=== PATIENT | female | born 1985 | race Caucasian/White ===

== ENCOUNTER 2021-04-07 23:09 | Observation (INO) | payer OTHER, SELFPAY ==
[2021-04-07 23:17] VITALS: BP 112/70; PULSE 106; RESP 28; TEMP 37.3; O2SAT 98
--- NOTE | 2021-04-07 23:28 | DI.CT.S_ITS ---
PROCEDURE: CT ABDOMEN PELVIS W CON INDICATIONS: lower right sided pain TECHNIQUE: After the administration of intravenous contrast, axial sections acquired from the lung bases to the pubic symphysis. Coronal and sagittal reformats were performed. For radiation dose reduction, the following was used: automated exposure control, adjustment of mA and/or kV according to patient size. COMPARISON: None. FINDINGS: Image quality: Excellent. Lung bases: Unremarkable. Heart: No significant findings. ABDOMEN: Liver: Unremarkable. Gallbladder: Surgically absent Biliary ducts: Unremarkable. Pancreas: Unremarkable. Spleen: Unremarkable. Adrenal Glands: Unremarkable. Kidneys and Ureters: Unremarkable. Stomach and Bowel: There is a loop of small bowel which is dilated, possibly representing proximal ileum. Maximum diameter of the loop is approximately 2.9 cm. It has the appearance of a focal small bowel obstruction. No free air or free fluid. Peritoneum: No abnormal intraperitoneal fluid. No free air. Ventral Wall: No hernias. Abdominal Nodes: No retroperitoneal or mesenteric adenopathy by size criteria. Vessels: Aorta and inferior vena cava are normal in size. PELVIS: Pelvic Organs: Uterus is surgically absent. 2.2 cm partially collapsed left ovarian cyst. Otherwise unremarkable. Bladder: Unremarkable. Pelvic Nodes: No enlarged lymph nodes. Miscellaneous: No hernias are seen. Bones: Unremarkable. IMPRESSION: 1. Remote cholecystectomy and hysterectomy. 2. Findings are consistent with partial or early small bowel obstruction. Comment: Final report is concordant with preliminary interpretation provided by [facility]. Dictated by: Colten Zhang M.D. on 04/08/2021 at 8:23 Approved by: Colten Zhang M.D. on 04/08/2021 at 8:31
--- NOTE | 2021-04-07 23:29 | ED_ITS ---
HPI - Abdominal Pain General Chief Complaint: Abdominal Pain Stated Complaint: Extreme R Quadrant Pain Source: patient Mode of arrival: Ambulatory History of Present Illness HPI narrative: Patient brought in by EMS from home for right side abdominal pain with nausea and vomiting. Similar episode with gastric perforation but denies any epigastric pain. History of appendectomy cholecystectomy and hysterectomy. Patient states usually goes to [facility]. No recent illness. Patient states needs Benadryl when given narcotic pain medication. Related Data Home Medications Medication Instructions Recorded Confirmed acetaminophen 500 mg tablet 1,000 mg PO Q6H PRN 04/08/21 04/08/21 (Acetaminophen Extra Strength) albuterol sulfate 90 mcg/actuation 2 puff INHALATION Q4HR PRN 04/08/21 04/08/21 aerosol inhaler diphenhydramine HCl 25 mg tablet 25 - 50 mg PO PRN PRN 04/08/21 04/08/21 (Allergy (diphenhydramine)) epinephrine 0.3 mg/0.3 mL 0.3 mg IM PRN PRN 04/08/21 04/08/21 injection, auto-injector loratadine 10 mg tablet (Claritin) 10 mg PO DAILY 04/08/21 04/08/21 Previous Rx's Medication Instructions Recorded ciprofloxacin HCl 500 mg tablet 500 mg PO BID #5 tab 04/09/21 (Cipro) prochlorperazine maleate 10 mg 10 mg PO Q8H PRN #10 tab 04/09/21 tablet (Compazine) Allergies Allergy/AdvReac Type Severity Reaction Status Date / Time amoxicillin [AMOXICILLIN] Allergy Unknown Verified 04/07/21 23:26 aspirin [ASPIRIN] Allergy Unknown Verified 04/07/21 23:26 butorphanol [BUTORPHANOL] Allergy Unknown Verified 04/07/21 23:26 clavulanic acid Allergy Unknown Verified 04/07/21 23:26 [CLAVULANIC ACID] fentanyl [FENTANYL] Allergy Unknown Verified 04/07/21 23:26 fluconazole [FLUCONAZOLE] Allergy Unknown Verified 04/07/21 23:26 hydrocodone [HYDROCODONE] Allergy Unknown Verified 04/07/21 23:26 hydromorphone [HYDROMORPHONE] Allergy Unknown Verified 04/07/21 23:26 methylprednisolone Allergy Unknown Verified 04/07/21 23:26 [METHYLPREDNISOLONE] morphine [MORPHINE] Allergy Unknown Verified 04/07/21 23:26 nitrofurantoin Allergy Unknown Verified 04/07/21 23:26 [NITROFURANTOIN] tamsulosin [TAMSULOSIN] Allergy Unknown Verified 04/07/21 23:26 tramadol [TRAMADOL] Allergy Unknown Verified 04/07/21 23:26 Review of Systems Review of Systems Narrative: GENERAL: Denies chills, fatigue, malaise, fever, sweats. HEENT: Denies sinus pain, ear pain, sore throat RESPIRATORY: Denies dyspnea, cough CARDIOVASCULAR: Denies chest pain, palpitations GASTROINTESTINAL: Complaint nausea, vomiting, abdominal pain : Denies dysuria, frequency, hematuria MUSCULOSKELETAL: denies muscle or bony pain SKIN: Denies rash, skin lesions NEUROLOGIC: Denies weakness, numbness Patient History Medical History (Updated 04/09/21 @ 12:39 by Vicente Spence MD) History of peptic ulcer disease Polycystic kidney disease Surgical History (Updated 04/08/21 @ 08:26 by Vicente Spence MD) Status post appendectomy Status post cholecystectomy Social History household members: spouse and children Smoking Status: Never smoker alcohol intake: never Smoking Status: Never smoker alcohol intake frequency: other Substance Use Type: marijuana Exam Narrative Exam Narrative: GENERAL: in no distress, not toxic not dyspneic HEAD: Normocephalic. EYES: Pupils equal round No scleral icterus. No injection no discharge ENT: Mucous membranes moist. NECK: Trachea midline. CARDIOVASCULAR: Regular rate and rhythm without murmurs RESPIRATORY: Clear to auscultation. Breath sounds equal bilaterally. No wheezes, rales, or rhonchi. GASTROINTESTINAL: Abdomen soft, tender to touch right upper and lower quadrant of abdomen. Bowel sounds present. No peritoneal signs EXTREMITIES: No gross deformities. BACK: No flank tenderness. NEURO: AOx4. SKIN: Warm and dry PSYCH: Not anxious, is cooperative Initial Vital Signs Initial Vital Signs: Vital Signs Temperature 99.1 F 04/07/21 23:17 Pulse Rate 106 H 04/07/21 23:17 Respiratory Rate 28 H 04/07/21 23:17 Blood Pressure 112/70 04/07/21 23:17 Pulse Oximetry 98 04/07/21 23:17 Course Course Course Narrative: No new issues during course of stay Orders Ordered: Discontinued Medications Ciprofloxacin (Ciprofloxacin 250 Mg Tablet) 500 mg PO NOW ONE Stop: 04/08/21 16:16 Last Admin: 04/08/21 16:38 Dose: 500 mg Documented by: DELTA Ciprofloxacin (Ciprofloxacin 250 Mg Tablet) 500 mg PO 0700,2100 RICHA Last Admin: 04/09/21 08:12 Dose: 500 mg Documented by: PADMA Diphenhydramine HCl (Diphenhydramine 50 Mg/Ml Vial) 25 mg IV NOW ONE Stop: 04/07/21 23:28 Last Admin: 04/07/21 23:35 Dose: 25 mg Documented by: FAZAL Diphenhydramine HCl (Diphenhydramine 50 Mg/Ml Vial) 25 mg IV QID PRN PRN Reason: Allergic Reaction Last Admin: 04/08/21 03:09 Dose: 25 mg Documented by: SAMMY Diphenhydramine HCl (Diphenhydramine 25 Mg Tablet) 25 mg PO Q6HR PRN PRN Reason: Itching Last Admin: 04/09/21 09:49 Dose: 25 mg Documented by: Admin: 04/09/21 02:28 Dose: 25 mg Documented by: KEYSHA Sodium Chloride (Normal Saline 0.9%) 1,000 mls @ 1,000 mls/hr IV BOLUS ONE Stop: 04/08/21 00:26 Last Infusion: 04/08/21 01:24 Dose: 0 mls/hr Documented by: Admin: 04/07/21 23:35 Dose: 1,000 mls/hr Documented by: FAZAL Lactated Ringer's (Lactated Ringers) 1,000 mls @ 150 mls/hr IV CONT RICHA Last Admin: 04/09/21 09:54 Dose: 150 mls/hr Documented by: Infusion: 04/08/21 16:39 Dose: 0 mls/hr Documented by: Admin: 04/08/21 09:30 Dose: 150 mls/hr Documented by: Infusion: 04/08/21 08:01 Dose: 150 mls/hr Documented by: Admin: 04/08/21 01:20 Dose: 150 mls/hr Documented by: FAZAL Lorazepam (Lorazepam 2 Mg/Ml Inj) 1 mg IV NOW ONE Stop: 04/08/21 08:17 Last Admin: 04/08/21 08:27 Dose: 1 mg Documented by: ADIEL Lorazepam (Lorazepam 2 Mg/Ml Inj) 1 mg IV Q6HR PRN PRN Reason: Anxiety Morphine Sulfate (Morphine 4 Mg/Ml Inj) 4 mg IV NOW ONE Stop: 04/07/21 23:28 Last Admin: 04/07/21 23:36 Dose: 4 mg Documented by: FAZAL Morphine Sulfate (Morphine 2 Mg/Ml Inj) 4 mg IV Q4HR PRN PRN Reason: Pain, Mild (1-3) Last Admin: 04/09/21 10:30 Dose: 4 mg Documented by: Admin: 04/08/21 14:50 Dose: 2 mg Documented by: Admin: 04/08/21 08:39 Dose: 4 mg Documented by: Admin: 04/08/21 05:37 Dose: 4 mg Documented by: Admin: 04/08/21 01:20 Dose: 4 mg Documented by: FAZAL Ondansetron HCl (Ondansetron 4 Mg/2 Ml Inj) 4 mg IV NOW ONE Stop: 04/07/21 23:28 Last Admin: 04/07/21 23:36 Dose: 4 mg Documented by: FAZAL Ondansetron HCl (Ondansetron 4 Mg/2 Ml Inj) 4 mg IV Q4HR PRN PRN Reason: Nausea And Vomiting Last Admin: 04/08/21 14:02 Dose: 4 mg Documented by: Admin: 04/08/21 05:45 Dose: 4 mg Documented by: MERCED Oxycodone HCl (Oxycodone Ir 10 Mg Tablet) 10 mg PO Q4HR PRN PRN Reason: Pain, Severe (7-10) Last Admin: 04/09/21 06:40 Dose: 10 mg Documented by: Admin: 04/09/21 02:28 Dose: 10 mg Documented by: KEYSHA Pantoprazole Sodium (Pantoprazole Dr 20 Mg Tablet) 20 mg PO NOW ONE Stop: 04/08/21 15:27 Last Admin: 04/08/21 15:48 Dose: 20 mg Documented by: DELTA Prochlorperazine (Prochlorperazine 10 Mg/2 Ml Vial) 10 mg IV NOW ONE Stop: 04/08/21 08:17 Last Admin: 04/08/21 08:28 Dose: 10 mg Documented by: ADIEL Prochlorperazine (Prochlorperazine 10 Mg/2 Ml Vial) 10 mg IV Q6HR PRN PRN Reason: Nausea Last Admin: 04/09/21 09:51 Dose: 10 mg Documented by: PADMA Reevaluation(s) Reevaluation #1: Patient understands indication for admission and she agrees. Time: 01:04 Consultations Consultation #1: Spoke with general surgery Dr. Spence, will admit to his service. No NG tube indicated this time. Start lactated Ringer's 150 mL/hour. Vital Signs Vital signs: Vital Signs - 8 hr 04/07/21 23:17 04/08/21 00:34 Temperature 99.1 F Pulse Rate 106 H 77 Respiratory Rate 28 H 17 Blood Pressure 112/70 Pulse Oximetry 98 99 MDM - Abdominal Pain Differential Diagnosis Differential diagnosis: Likely abdominal pain and small bowel obstruction Lab Data Result diagrams: 04/07/21 23:31 04/07/21 23:31 Labs: Lab Results 04/07/21 04/07/21 Range/Units 23:31 23:31 WBC 9.2 (4.5-11.0) X10^3/uL RBC 4.70 (4.0-5.2) X10^6/uL Hgb 14.1 (12.0-16.0) g/dL Hct 41.9 (36-46) % MCV 89.0 (80-100) fL MCH 30.0 (26-34) PG MCHC 33.7 (30-36) % RDW 12.9 (11.6-14.8) % Plt Count 265 (150-400) X10^3/uL Neut % (Auto) 64.5 (50-75) % Lymph % (Auto) 25.0 (25-40) % [place] % (Auto) 6.3 (3-14) % Eos % (Auto) 3.1 (2-4) % Baso % (Auto) 1.1 (0-2) % Neut # (Auto) 5900 (6281-2055) /uL Lymph # (Auto) 2300 (1812-7502) /uL [place] # (Auto) 600 (0-900) /uL Eos # (Auto) 300 (0-450) /uL Baso # (Auto) 100 (0-100) /uL Sodium 139 (137-145) mmol/L Potassium 3.9 (3.4-5.1) mmol/L Chloride 106 (98-107) mmol/L Carbon Dioxide 24 (22-32) mmol/L BUN 15 (7-17) mg/dL Creatinine 0.70 (0.52-1.04) mg/dL Estimated GFR > 60.0 (>60) mL/min BUN/Creatinine Ratio 21.4 (6-22) Glucose 104 H (70-100) mg/dL Calcium 9.7 (8.4-10.2) mg/dL Total Bilirubin 0.5 (0.2-1.3) mg/dL AST 24 (14-36) IU/L ALT 16 (<35) IU/L Alkaline Phosphatase 41 (38-126) U/L Total Protein 8.1 (6.3-8.2) g/dL Albumin 4.7 (3.5-5.0) g/dL Globulin 3.4 (1.7-4.1) g/dL Albumin/Globulin Ratio 1.4 (1.0-2.8) Lipase 242 (23-300) U/L Imaging Data CT scan - abdomen/pelvis: Radiologist's Impression: Read by overnight radiologist mild partial small-bowel obstruction involving only few fluids of distal bowel and pelvis. MDM Narrative Medical decision making narrative: Appropriate for admit for pain control and bowel obstruction observation Discharge Plan Departure Patient Disposition: Admitted as Observation Clinical Impression: Partial bowel obstruction Qualifiers: Intestinal obstruction type: unspecified Qualified Code(s): K56.600 - Partial intestinal obstruction, unspecified as to cause Admit Date/Time: 04/08/21 01:10 Admit Provider: Vicente Spence
[2021-04-07] MEDS: diphenhydrAMINE 50 MG/ML VIAL 25 MG IV (23:35)
[2021-04-07] MEDS: SODIUM CHLORIDE 0.9% 1,000 ML 1000 ML IV (23:35)
[2021-04-07] MEDS: MORPHINE 4 MG/ML INJ IV (23:36)
[2021-04-07] MEDS: ONDANSETRON 4 MG/2 ML INJ IV (23:36)
[2021-04-07 23:42] LABS: Add Manual Diff / Slide Review NO; Basophils Absolute Auto 100 /uL (0-100); Basophils Percent Auto 1.1 % (0-2); Eosinophils Absolute Auto 300 /uL (0-450); Eosinophils Percent Auto 3.1 % (2-4); Hematocrit 41.9 % (36-46); Hemoglobin 14.1 g/dL (12.0-16.0); Lymphocytes Absolute Auto 2300 /uL (1100-4500); Mean Corpuscular HGB Conc 33.7 % (30-36); Monocytes Absolute Auto 600 /uL (0-900); Monocytes Percent Auto 6.3 % (3-14); Neutrophils Absolute Auto 5900 /uL (1500-7000); Neutrophils Percent Auto 64.5 % (50-75); Platelet Count 265 X10^3/uL (150-400); Red Cell Distribution Width 12.9 % (11.6-14.8); White Blood Cell Count 9.2 X10^3/uL (4.5-11.0)
[2021-04-07 23:52] LABS: Alanine Aminotransferase 16 IU/L (<35); Albumin 4.7 g/dL (3.5-5.0); Albumin Globulin Ratio 1.4 (1.0-2.8); Alkaline Phosphatase 41 U/L (38-126); Aspartate Aminotransferase 24 IU/L (14-36); BUN Creatinine Ratio 21.4 (6-22); Bilirubin Total 0.5 mg/dL (0.2-1.3); Blood Urea Nitrogen 15 mg/dL (7-17); Calcium 9.7 mg/dL (8.4-10.2); Carbon Dioxide 24 mmol/L (22-32); Chloride 106 mmol/L (98-107); Estimated Glomerular Filt Rate > 60.0 mL/min (>60); Globulin 3.4 g/dL (1.7-4.1); Glucose 104 mg/dL (70-100); HEMOLYSIS < 15 (0-50); Lipase 242 U/L (23-300); Potassium 3.9 mmol/L (3.4-5.1); Sodium 139 mmol/L (137-145); Total Protein 8.1 g/dL (6.3-8.2)
[2021-04-08] VITALS (9 sets, daily range): BP systolic 96–125; BP diastolic 53–88; PULSE 68–100; RESP 16–18; TEMP 36.1–37.1; O2SAT 96–100; BMI 26.2
--- NOTE | 2021-04-08 | DI.RAD.S_ITS ---
PROCEDURE: XR GASTROGRAFIN CHALLENGE COMPARISON: None. INDICATIONS: r/o obstruction. therapeutic FINDINGS: There is diffuse oral contrast material seen within the small bowel and colon. There is small amount of contrast material seen in the proximal rectal vault. Residual IV contrast material seen within the bladder. No specific transition point identified. Contrast material is also retained in the stomach. Surgical clips at the right upper quadrant. IMPRESSION: No specific transition point. Contrast material reaches the proximal rectal vault. Of note, residual oral contrast material retained in the stomach. Dictated by: Panda Rosas M.D. on 04/08/2021 at 13:37 Approved by: Panda Rosas M.D. on 04/08/2021 at 13:38
[2021-04-08] MEDS: MORPHINE 2 MG/ML INJ 4 MG IV ×4 (01:20→14:50)
[2021-04-08] MEDS: LACTATED RINGERS 1,000 ML 150 ML IV ×2 (01:20→09:30)
[2021-04-08 02:28] LABS: COVID19 - ADMIT (NP swab/PCR) Negative (Negative)
--- NOTE | 2021-04-08 03:06 | PC.ADMIT ---
[address] Admission Note: Patient arrived at 0145 from the ED via bed. Patient was A/O with pain rated 9-10/10. Patient was shivering but stated it was from the pain and not from being cold. Patient did have medications in her purse that were placed in the nurse sever. Patient's IV was painful and above the site was breaking out in hives. The site was removed and a new site was placed. Patient tolerated both well. Patient was oriented to the room and call light, and the call light was left within reach. The patient,Sheyla Tapia,36 y/o, was given written information regarding hospital policies, unit procedures and contact persons. Patient's smoking status: Never smoker. Vital Signs - 8 hr 04/07/21 23:17 04/08/21 00:33 04/08/21 00:34 Temperature 99.1 F Pulse Rate 106 H 76 77 Respiratory Rate 28 H 17 Blood Pressure 112/70 122/88 Pulse Oximetry 98 99 99 04/08/21 01:00 04/08/21 01:50 Temperature 97.6 F Pulse Rate 88 100 H Respiratory Rate 18 Blood Pressure 125/76 117/63 Pulse Oximetry 98 100
[2021-04-08] MEDS: diphenhydrAMINE 50 MG/ML VIAL 25 MG IV (03:09)
[2021-04-08] MEDS: ONDANSETRON 4 MG/2 ML INJ IV ×2 (05:45→14:02)
--- NOTE | 2021-04-08 08:19 | PM.HP.1 ---
History of Present Illness History of Present Illness Chief complaint: Extreme R Quadrant Pain Narrative: The patient is a woman has been having increasing diarrhea the last 2 or so weeks. It is become more severe the last few days. Yesterday she developed abdominal pain with cramping that became so severe that she came into the emergency room. She does have chronic abdominal pain that she feels is related to her polycystic kidney disease. Pain appears to be mainly in the right lower abdomen. The patient has had a hysterectomy and right oophorectomy for cervical cancer. She has had an appendectomy. She has had a cholecystectomy and she had an operation for perforated ulcer. She does have chronic pain as mentioned in usually uses the CBD gummies to relieve it so she can sleep at night. She did have multiple episodes of emesis yesterday as well. Patient History Medical History (Updated 04/08/21 @ 08:33 by Vicente Spence MD) History of peptic ulcer disease Polycystic kidney disease Surgical History (Updated 04/08/21 @ 08:26 by Vicente Spence MD) Status post appendectomy Status post cholecystectomy Family & Social History Social History: household members spouse,children Prior Living Arrangements Apartment/Condo Safety & Behavioral: Feels Safe in Current Yes Environment Been Physically Hurt or No Threatened By a Person Suicidal Ideation Description None Suicide Plan Description No Plan Tobacco & Substance use: Smoking Status Never smoker alcohol intake never alcohol intake frequency other Substance Use Type marijuana Meds Home Medications and Allergies Home Medications Medication Instructions Recorded Confirmed Type acetaminophen 500 mg tablet 1,000 mg PO Q6H PRN 04/08/21 04/08/21 History (Acetaminophen Extra Strength) albuterol sulfate 90 mcg/actuation 2 puff INHALATION Q4HR PRN 04/08/21 04/08/21 History aerosol inhaler diphenhydramine HCl 25 mg tablet 25 - 50 mg PO PRN PRN 04/08/21 04/08/21 History (Allergy (diphenhydramine)) epinephrine 0.3 mg/0.3 mL 0.3 mg IM PRN PRN 04/08/21 04/08/21 History injection, auto-injector loratadine 10 mg tablet (Claritin) 10 mg PO DAILY 04/08/21 04/08/21 History Allergies Allergy/AdvReac Type Severity Reaction Status Date / Time amoxicillin [AMOXICILLIN] Allergy Unknown Verified 04/07/21 23:26 aspirin [ASPIRIN] Allergy Unknown Verified 04/07/21 23:26 butorphanol [BUTORPHANOL] Allergy Unknown Verified 04/07/21 23:26 clavulanic acid Allergy Unknown Verified 04/07/21 23:26 [CLAVULANIC ACID] fentanyl [FENTANYL] Allergy Unknown Verified 04/07/21 23:26 fluconazole [FLUCONAZOLE] Allergy Unknown Verified 04/07/21 23:26 hydrocodone [HYDROCODONE] Allergy Unknown Verified 04/07/21 23:26 hydromorphone [HYDROMORPHONE] Allergy Unknown Verified 04/07/21 23:26 methylprednisolone Allergy Unknown Verified 04/07/21 23:26 [METHYLPREDNISOLONE] morphine [MORPHINE] Allergy Unknown Verified 04/07/21 23:26 nitrofurantoin Allergy Unknown Verified 04/07/21 23:26 [NITROFURANTOIN] tamsulosin [TAMSULOSIN] Allergy Unknown Verified 04/07/21 23:26 tramadol [TRAMADOL] Allergy Unknown Verified 04/07/21 23:26 Review of Systems Review of Systems Narrative: No prior heart problems. No murmurs. No cough or cold at this time. No seizures. Exam Vital Signs (past 8 hours): - 04/08/21 00:33 04/08/21 00:34 04/08/21 01:00 Temperature Pulse Rate 76 77 88 Respiratory Rate 17 Blood Pressure 122/88 125/76 Pulse Oximetry 99 99 98 04/08/21 01:50 04/08/21 06:00 Temperature 97.6 F 97.0 F L Pulse Rate 100 H 83 Respiratory Rate 18 16 Blood Pressure 117/63 101/68 Pulse Oximetry 100 99 Oxygen Delivery Method Room Air Oxygen Flow Rate 0 Narrative Exam Narrative: Patient rolling on bed in pain. Grabbing at her right side. Eyes are nonicteric. No bruit in the neck. Lungs are clear to auscultation without rales or rhonchi. Heart regular rate and rhythm without murmur gallop. Abdomen is flat soft. She has tenderness in the right lower quadrant with voluntary guarding. She has multiple scars on her abdomen from her various operations. I do not appreciate any hernias. She is alert and oriented. Appears anxious and in pain. Objective Imaging CT scan - abdomen: My impression: Perhaps some mild mid abdominal distension of the small bowel. Most of the small bowel is not dilated. I do not appreciate any ventral hernias. Kidneys appear fairly normal on the CT scan. The prior ultrasound earlier this year showed some small cysts. Not sure if this is typical of polycystic kidney disease. Labs Result Diagrams: 04/07/21 23:31 04/07/21 23:31 Labs: Laboratory Results - last 24 hr 04/07/21 04/07/21 04/08/21 23:31 23:31 01:30 WBC 9.2 RBC 4.70 Hgb 14.1 Hct 41.9 MCV 89.0 MCH 30.0 MCHC 33.7 RDW 12.9 Plt Count 265 Neut % (Auto) 64.5 Lymph % (Auto) 25.0 [place] % (Auto) 6.3 Eos % (Auto) 3.1 Baso % (Auto) 1.1 Neut # (Auto) 5900 Lymph # (Auto) 2300 [place] # (Auto) 600 Eos # (Auto) 300 Baso # (Auto) 100 Sodium 139 Potassium 3.9 Chloride 106 Carbon Dioxide 24 BUN 15 Creatinine 0.70 Estimated GFR > 60.0 BUN/Creatinine Ratio 21.4 Glucose 104 H Calcium 9.7 Total Bilirubin 0.5 AST 24 ALT 16 Alkaline Phosphatase 41 Total Protein 8.1 Albumin 4.7 Globulin 3.4 Albumin/Globulin Ratio 1.4 Lipase 242 SARS-CoV-2 (PCR) Negative Assessment & Plan Assessment and plan (1) Partial bowel obstruction: Qualifiers: Intestinal obstruction type: unspecified Qualified Code(s): K56.600 - Partial intestinal obstruction, unspecified as to cause Status: Acute (2) Diarrhea: Qualifiers: Diarrhea type: unspecified type Qualified Code(s): R19.7 - Diarrhea, unspecified Status: Acute (3) Abdominal pain: Qualifiers: Abdominal location: right lower quadrant Qualified Code(s): R10.31 - Right lower quadrant pain Status: Acute Assessment & Plan narrative: Cause of this patient's symptoms not entirely clear. This may be related to infectious diarrhea or some with a GI bug. She could have a partial obstruction. Her pain and motion suggest a diagnosis other than peritoneal irritation as most patients with peritonitis lay rather still. Plan a Gastrografin challenge. IV resuscitation. Meds for anxiety and pain control.
[2021-04-08] MEDS: LORazepam 2 MG/ML INJ 1 MG IV (08:27)
[2021-04-08] MEDS: PROCHLORPERAZINE 10 MG/2 ML VIAL IV (08:28)
--- NOTE | 2021-04-08 14:20 | CM.IDA ---
Initial DCP Assessment Note Pt is a 36 yo female, resident of [place], arrives w/extreme abd pain and increasing diarrhea. According to Dr Spence, cause of patient's symptoms unknown at this time, conservative management and gastrografin challenge today PCP: Ceci Cherry Payer: Hillary Reviewed chart, pt discussed in multidisciplinary rounds this morning. Patient expected to return home w/family upon DC, medical POC still unfolding. No needs expected from DC planning team today, attempted to meet with patient and she was asleep, RN recommended to allow patient to rest at this time. [employer] team will follow closely for any DC needs or concerns that might arise. VALERY Renteria
[2021-04-08] MEDS: PANTOPRAZOLE DR 20 MG TABLET PO (15:48)
[2021-04-08 15:56] LABS: Campylobacter Not Detected (Not Detect); Clostridium difficile toxin AB Not Detected (Not Detect); Plesiomonsa shigelloides Not Detected (Not Detect); Salmonella Not Detected (Not Detect); Vibrio Not Detected (Not Detect); Vibrio cholerae Not Detected (Not Detect); Yersinia enterocolitica Not Detected (Not Detect)
[2021-04-08 15:57] LABS: Adenovirus F 40/41 Not Detected (Not Detect); Astrovirus Not Detected (Not Detect); Cryptosporidium Not Detected (Not Detect); Cyclospora cayetanensis Not Detected (Not Detect); Entamoeba histolytica Not Detected (Not Detect); Enteroaggregative E.coli Not Detected (Not Detect); Enterotoxigenic E.coli It/st Not Detected (Not Detect); Giardia lamblia Not Detected (Not Detect); Norovirus GI/GII Not Detected (Not Detect); Rotavirus A Not Detected (Not Detect); Sapovirus Not Detected (Not Detect); Shiga-like toxin-prod E.coli Not Detected (Not Detect); Shigella/Enteroinvasive E.coli Not Detected (Not Detect)
[2021-04-08 16:02] LABS: Enteropathogenic E.coli Detected (Not Detect)
[2021-04-08] MEDS: CIPROFLOXACIN 250 MG TABLET 500 MG PO (16:38)
[2021-04-09] VITALS: BP 96/58; PULSE 81; RESP 16; TEMP 36.6; O2SAT 97
[2021-04-09] MEDS: OXYCODONE IR 10 MG TABLET PO ×2 (02:28→06:40)
[2021-04-09] MEDS: diphenhydrAMINE 25 MG TABLET PO ×2 (02:28→09:49)
[2021-04-09 04:00] VITALS: BP 107/71; PULSE 98; RESP 16; TEMP 36.9; O2SAT 99
[2021-04-09] MEDS: CIPROFLOXACIN 250 MG TABLET 500 MG PO (08:12)
[2021-04-09 08:20] VITALS: BP 100/65; PULSE 79; RESP 18; TEMP 36.7; O2SAT 99
[2021-04-09 09:51] VITALS: BP 100/65; PULSE 79
[2021-04-09] MEDS: PROCHLORPERAZINE 10 MG/2 ML VIAL IV (09:51)
[2021-04-09] MEDS: LACTATED RINGERS 1,000 ML 150 ML IV (09:54)
[2021-04-09] MEDS: MORPHINE 2 MG/ML INJ 4 MG IV (10:30)
--- NOTE | 2021-04-09 14:13 | PC.NURSE ---
Pt receieved resting in bed this a.m. Pt complains of nausea and abdominal pain 9/10 this a.m with tenderness to RLQ. + BS auscultated x4. Pt LS CTA, ambulating without difficulty to BR. Pt requesting IV to be replaced for pain medication stronger than 10 mg oxycodone, stating it had very little effect. Able to establish IV access and administer compazine and morphine per request. Pt given benadryl prior to morphine per request reports getting flushed/hives without benadryl. No reaction noted, pt sleeping and tolerating clear liquid diet without n/v. MD at bedside shortly after noon, clearing patient for discharge home. Pt verbalized acknowledgement and in agreement with plan, states understanding of medications, and follow up instructions. RN escorted patient to private vehicle with , with all of her home medications, epi pen and belongings.
== END 2021-04-09 14:00 | disposition home or self-care (01) ==
LOC: ED 04-08 01:05 → AC 04-08 01:11
PROVIDERS: Admitting Provider Specialist; Emergency Provider Emergency Medicine; Family Provider Nurse Practitioner Family; PCP Nurse Practitioner Family; Referring Provider Emergency Medicine; Visit Provider Specialist
DX: K56.600 Partial intestinal obstruction, unspecified as to cause (principal); Q61.3 Polycystic kidney, unspecified; Z20.822 Contact with and (suspected) exposure to COVID-19
CPT/HCPCS: 36415; 74018; 74177; 80053; 81003; 82962; 83690; 85025; 87507; 87635; 96361; 96374; 96375; 96376; 99219; 99284; C9803; G0378; J0780; J1200; J2060; J2270; J2405; Q9967

== ENCOUNTER → 2021-05-06 11:12 | Outpatient (CLI) | payer OTHER, SELFPAY ==
[2021-04-08 02:06] VITALS: BMI 26.2
[2021-05-06 11:18] LABS: RBC Urine None Seen (0-5/HPF)
[2021-05-06 12:14] LABS: Add Manual Diff / Slide Review NO; Basophils Absolute Auto 100 /uL (0-100); Basophils Percent Auto 1.1 % (0-2); Eosinophils Absolute Auto 300 /uL (0-450); Eosinophils Percent Auto 4.5 % (2-4); Hematocrit 40.9 % (36-46); Hemoglobin 13.7 g/dL (12.0-16.0); Lymphocytes Absolute Auto 2200 /uL (1100-4500); Lymphocytes Percent Auto 31.8 % (25-40); Mean Corpuscular HGB Conc 33.4 % (30-36); Mean Corpuscular Hemoglobin 30.2 PG (26-34); Mean Corpuscular Volume 90.5 fL (80-100); Monocytes Absolute Auto 400 /uL (0-900); Monocytes Percent Auto 5.5 % (3-14); Neutrophils Absolute Auto 3900 /uL (1500-7000); Neutrophils Percent Auto 57.1 % (50-75); Platelet Count 217 X10^3/uL (150-400); Red Blood Cell Count 4.52 X10^6/uL (4.0-5.2); Red Cell Distribution Width 12.7 % (11.6-14.8); White Blood Cell Count 6.8 X10^3/uL (4.5-11.0)
[2021-05-06 12:44] LABS: Alanine Aminotransferase 14 IU/L (<35); Albumin 4.4 g/dL (3.5-5.0); Albumin Globulin Ratio 1.4 (1.0-2.8); Alkaline Phosphatase 35 U/L (38-126); Aspartate Aminotransferase 20 IU/L (14-36); BUN Creatinine Ratio 21.8 (6-22); Bilirubin Total 0.5 mg/dL (0.2-1.3); Blood Urea Nitrogen 12 mg/dL (7-17); Calcium 9.4 mg/dL (8.4-10.2); Carbon Dioxide 24 mmol/L (22-32); Chloride 109 mmol/L (98-107); Estimated Glomerular Filt Rate > 60.0 mL/min (>60); Globulin 3.1 g/dL (1.7-4.1); Glucose 92 mg/dL (70-100); HEMOLYSIS < 15 (0-50); Potassium 3.8 mmol/L (3.4-5.1); Sodium 140 mmol/L (137-145); Total Protein 7.5 g/dL (6.3-8.2)
[2021-05-06 12:54] LABS: Appearance Urine UA CLEAR; Bilirubin Urine UA NEGATIVE (NEGATIVE); Color Urine UA YELLOW; Glucose Urine UA NEGATIVE (Negative); Ketones Urine UA NEGATIVE (NEGATIVE); Leukocyte Esterase Urine UA NEGATIVE (NEGATIVE); Nitrite Urine UA NEGATIVE (Negative); Occult Blood Urine UA NEGATIVE (Negative); Protein Urine UA NEGATIVE (Negative); Specific Gravity Urine UA 1.015 (1.000-1.035); Urobilinogen Urine UA 0.2 E.U./dL (0.2)
[2021-05-06 13:15] LABS: Bacteria Urine Few (2-10); Culture Indicated Urine Cult Not Indicated; Mucus Urine 2+ (Negative); Squamous Epithelial Cell Urine 5-10 /HPF (0-5/HPF); WBC Urine 0-1/HPF (0-5/HPF)
== END ==
PROVIDERS: Family Provider Nurse Practitioner Family; Referring Provider Specialist; Visit Provider Specialist
DX: R10.9 Unspecified abdominal pain (principal); R11.2 Nausea with vomiting, unspecified; R31.9 Hematuria, unspecified
CPT/HCPCS: 36415; 80053; 81001; 85025

== ENCOUNTER → 2021-05-24 10:53 | Outpatient (CLI) | payer OTHER, SELFPAY ==
[2021-04-08 02:06] VITALS: BMI 26.2
[2021-05-24 13:50] LABS: COVID19 -Nasal RAPID Negative (Negative)
== END ==
PROVIDERS: Family Provider Nurse Practitioner Family; Visit Provider Specialist
DX: Z01.812 Encounter for preprocedural laboratory examination (principal); Z20.822 Contact with and (suspected) exposure to COVID-19
CPT/HCPCS: 87635; C9803

== ENCOUNTER 2021-05-26 11:10 | Day surgery (SDC) | payer OTHER, SELFPAY ==
[2021-04-08 02:06] VITALS: BMI 26.2
[2021-05-26] VITALS (10 sets, daily range): BP systolic 92–107; BP diastolic 48–78; PULSE 71–98; RESP 12–19; TEMP 36.1–36.6; O2SAT 98–100; BMI 25.2
--- NOTE | 2021-05-26 | PATH_ITS ---
[facility] Accession Number: [id number] . 01 Material submitted: . PART A: stomach - GASTRIC ANTRUM PART B: esophagus, E-G Junction - GE JUNCTION PART C: ileum - RANDOM BIOPSY; TERMINAL ILEUM . 01 Clinical history: . A: R/O H PYLORI . 02 Diagnosis: A. Stomach, Antrum, Biopsy: Antral mucosa with mild chronic gastritis. Negative for Helicobacter by immunohistochemistry. Negative for intestinal metaplasia. Negative for dysplasia and malignancy. . B. Gastroesophageal Junction, Biopsy: Squamous mucosa with reflux-related changes. Intraepithelial eosinophils are not increased. A PAS stain is negative for fungal organisms. Negative for dysplasia and malignancy. . C. Terminal Ileum, Biopsy: Small bowel mucosa with no diagnostic abnormality. Negative for active inflammation, dysplasia, and malignancy. [facility] 05/31/2021 1432 Local . 02 Electronically signed: . Emeli Macedo MD, Pathologist NPI- [id number] . 01 Gross description: . Part A: GASTRIC ANTRUM: Received in formalin are 3 fragment(s) of tenorio, soft tissue measuring 0.5 x 0.3 x 0.1 cm to 0.2 x 0.2 x 0.2 cm submitted entirely in 1 cassette(s) Part B: GE JUNCTION: Received in formalin are 3 fragment(s) of tenorio, soft tissue measuring 0.4 x 0.2 x 0.1 cm to 0.2 x 0.1 x 0.1 cm submitted entirely in 1 cassette(s) Part C: RANDOM BIOPSY; TERMINAL ILEUM: Received in formalin are multiple fragment(s) of tenorio, soft tissue measuring 1.5 x 0.5 x 0.1 cm in aggregate submitted entirely in 1 cassette(s) /BRENDA 05/27/2021 0823 Local . 02 Microscopic: . A) An immunohistochemical stain was performed to evaluate for Helicobacter organisms and is negative. The control stain showed appropriate reactivity. . B) A PAS stain was performed to evaluate for fungal organisms and is negative. The control stain showed appropriate reactivity. . * This test was developed and its performance characteristics determined by [facility]. It has not been cleared or approved by the U.S. Food and Drug Administration. The FDA has determined that such clearance or approval is not necessary. This test is used for clinical purposes. It should not be regarded as investigational or for research. . 02 Pathologist provided ICD-10: R10.10 . 02 CPT . 704475, 318600, 963140, 507529, [id number] Performed at: 01 [facility] [address] [id number] MD Jaquan Bland MD Phone: [phone] Performed at: 02 [facility] [address] [place], [place] [id number] MD Emeli Macedo MD Phone: [phone]
--- NOTE | 2021-05-26 12:14 | PM.PREOP ---
Pre-operative Note COVID-19 COVID-19 status: Negative Result date/Date tested (Pos, Neg/Pending): 05/25/21 Interval Note History & Physical reviewed/Exam performed by Physician: Yes Changes to H&P: Yes H&P completed within 30 days and has changed as indicated here:: I have discussed the procedures and the rationale with the patient including risks of bleeding, perforation which would necessitate a major operation, failure to find remove all lesions and the potential to tattoo. She appeared to understand and wished to proceed.
--- NOTE | 2021-05-26 13:56 | P.OP.ENDO_ITS ---
Operative Date/Time/Diagnoses Date of procedure: 05/26/21 Time of procedure: 13:56 Pre-op diagnosis: Upper abdominal and flank pain. Pain across the lower abdomen. Recent treatment for a pathogenic E coli. Chronic intermittent diarrhea. Post-op diagnosis: same (Mild gastritis. Schatzki ring at the GE junction without narrowing. Possible inflammation of the terminal ileum. Normal colon.) Procedure & Clinicians Study performed: EGD with cold biopsy. Colonoscopy with cold biopsy. Same procedure as scheduled: Yes Indications: Evaluate for causes of her symptomatology. 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 Therefore she is brought for an anesthesiologist to provide safe sedation without the use of narcotics. This principally includes propofol. The patient underwent general endotracheal anesthesia. A bite block was inserted and the scope was advanced through it into the esophagus. The esophagus was unremarkable. GE junction was noted at 37 cm from the incisors. There appeared to be a Schatzki ring in this area but there was no narrowing at the GE junction. The scope fit without difficulty with plenty of room to spare.. The stomach insufflated well. There were linear red bands of tissue seen in the body, antrum and at the incisura. The pyloric channel was widely patent and ac tually fixed open. The duodenum was unremarkable to the 4th part. Scope was brought back into the stomach and retroflexed. The proximal stomach was normal in appearance without evidence of a hiatal hernia. Biopsies were taken randomly in the distal stomach. This was to rule out H pylori in any other abnormality/gastritis.. The scope was straightened and brought out into the esophagus again. Biopsies were taken at the GE junction in the area of the Schatzki ring. No other lesions were seen. The scope was slowly removed and the patient tolerated the procedure well. The patient was placed in the left lateral decubitus position. Digital exam was unremarkable. The scope was inserted and advanced through the rectum into the sigmoid, descending, transverse, and ascending colon. No lesions were seen. No diverticuli were seen. Pressure was applied and the cecum was reached identified by the ileocecal valve and the appendiceal opening. The ileocecal valve was successfully cannulated. The terminal ileum was abnormal in appearance. There were unusually large lymphatic nodules and perhaps a small amount of cobblestoning on some of these nodules. Biopsies were taken. The scope was brought back into the cecum which was normal in appearance. The scope was gradually brought out. No inflammation or Polyps were found in the colon or rectum.. The scope ultimately was retroflexed in the rectum. The appearance was remarkable for some hemorrhoidal disease at the anal verge. There were no ulcerations.. The scope was removed and the patient tolerated the procedure well. The prep was excellent. Liquid contents of the colon were submitted for repeat stool studies given the patient's recent abnormal E coli. Scope withdrawal time: 6 minutes Sedation minutes: 0 (Patient done under general anesthesia due to her anaphylactoid reactions to multiple medications that might be used with normal moderate sedation.) Findings: gastritis and other findings (Prominent lymphatic nodules in terminal ileum. Schatzki ring at the GE junction.) Specimen(s): other (Gastric biopsies, GE junction biopsies, terminal ileum biopsies.) Complications: none Post-procedure Recommendations: Continue medication(s) (Omeprazole) and Other recommendation (Await stool studies and biopsy reports.) Plan for aftercare: We will contact with results of studies. Follow up: as needed Disposition: PACU
[2021-05-26] MEDS: SCOPOLAMINE 1 PATCH TOP (14:14)
[2021-05-26] MEDS: LORazepam 2 MG/ML INJ 0.25 MG IV (14:15)
--- NOTE | 2021-05-26 14:28 | SUR.PHASEI ---
1400 asked patient if shed like anything to drink. She said no because she was nauseated. No Zofran ordered due to taking zofran at home and got some in OR. Dr Harkins notified and ordered ephedrine IM. Ativan 0.25 ordered and Queaseease placed near patients head.
[2021-05-26] MEDS: ePHEDrine 50 MG/ML VIAL 25 MG IM (14:32)
--- NOTE | 2021-05-26 14:44 | SUR.PHASEI ---
1445 Relaxing now and denies nausea. Drank some apple juice
--- NOTE | 2021-05-26 16:11 | SUR.PHASEII ---
Pt ready to go, belly remained soft, no nausea. Pt left when ready and left in stable condition.
== END 2021-05-26 15:30 | disposition home or self-care (01) ==
PROVIDERS: Family Provider Nurse Practitioner Family; Referring Provider Specialist; Visit Provider Specialist
PROC: 0DJ08ZZ Inspection of Upper Intestinal Tract, Via Natural or Artificial Opening Endoscopic (ICD-10-PCS; CPT 43235; principal; 2021-05-26 12:45)
PROC: 0DJD8ZZ Inspection of Lower Intestinal Tract, Via Natural or Artificial Opening Endoscopic (ICD-10-PCS; CPT 45378; 2021-05-26 12:45)
DX: K29.50 Unspecified chronic gastritis without bleeding (principal); K22.2 Esophageal obstruction; R59.0 Localized enlarged lymph nodes; R10.10 Upper abdominal pain, unspecified; R10.30 Lower abdominal pain, unspecified; R19.7 Diarrhea, unspecified; Q61.3 Polycystic kidney, unspecified
CPT/HCPCS: 45380; 43239; 87045; 87046; 87177; 87427; 87507; J0330; J1100; J1200; J2060; J2250; J2405; J2704

== ENCOUNTER 2021-11-21 09:11 | Emergency (ER) | payer SELFPAY ==
[2021-04-08 02:06] VITALS: BMI 26.2
[2021-11-21] VITALS (7 sets, daily range): BP systolic 91–112; BP diastolic 54–73; PULSE 82–109; RESP 22–30; TEMP 36.8; O2SAT 99–100; BMI 24.6
--- NOTE | 2021-11-21 10:06 | ED_ITS ---
HPI - SOB/Dyspnea General Chief Complaint: Shortness of Breath/Dyspnea Stated Complaint: SOB, shaky, vomiting, dizzy Time Seen by Provider: 11/21/21 09:35 Source: patient Mode of arrival: Ambulatory History of Present Illness HPI Narrative: The patient arrives complaining of dyspnea. She has left-sided chest pain starting yesterday. She denies recent illness, no URI symptoms. She has no history of asthma. She does not smoke cigarettes. She does have history of anxiety, she has previously been on Ativan, she has no anxiety medications at this time. She has home eat tacos for dinner last night. This morning she developed nausea, vomiting diarrhea. She has abdominal cramping. She has no associated fever chills. There is no hematemesis or blood per rectum. She does take omeprazole for an ulcer. She denies dysuria or hematuria. She has nonspecific kidney problems. She takes CBD gummies for her kidney discomfort. She underwent hysterectomy 4 years ago. 1 over remains. 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 Related Data Home Medications Medication Instructions Recorded Confirmed acetaminophen 500 mg tablet 1,000 mg PO Q6H PRN 04/08/21 05/26/21 (Acetaminophen Extra Strength) albuterol sulfate 90 mcg/actuation 2 puff INHALATION Q4HR PRN 04/08/21 05/26/21 aerosol inhaler epinephrine 0.3 mg/0.3 mL 0.3 mg IM PRN PRN 04/08/21 05/26/21 injection, auto-injector loratadine 10 mg tablet (Claritin) 10 mg PO DAILY 04/08/21 05/26/21 omeprazole 20 mg tablet,delayed 20 mg PO BID 05/26/21 05/26/21 release Previous Rx's Medication Instructions Recorded ondansetron 4 mg disintegrating 4 mg PO Q8-12H PRN #14 tab 07/28/21 tablet citalopram 10 mg tablet 10 mg PO DAILY #90 tab 11/21/21 ondansetron 4 mg disintegrating 4 mg PO Q4H PRN 2 Days #20 tab 11/21/21 tablet Allergies Allergy/AdvReac Type Severity Reaction Status Date / Time aspirin Allergy Severe Anaphylaxis Verified 05/26/21 12:01 clavulanic acid Allergy Severe Anaphylaxis Verified 05/26/21 12:00 fentanyl Allergy Severe Anaphylaxis Verified 05/26/21 12:05 methylprednisolone Allergy Severe Agitated Verified 05/26/21 12:05 morphine Allergy Severe Hives Verified 05/26/21 12:05 Penicillins Allergy Severe Anaphylaxis Verified 05/26/21 11:59 hydrocodone AdvReac Severe Vomiting Verified 05/26/21 12:05 fluticasone [From Flonase] AdvReac Intermediate Agitated Verified 05/26/21 12:05 Review of Systems Constitutional Constitutional: Denies chills, Denies fever(s), Denies frequent falls and Denies headache(s) Eyes Eyes: Denies blurry vision ENT Ears, Nose, Mouth, and Throat: Denies dizziness, Denies headache(s) and Denies neck pain Cardiovascular Cardiovascular: Reports chest pain, Denies syncope, Denies rapid heart rate, Denies pedal edema and Denies edema Respiratory Respiratory: Denies chest congestion and Denies pain with cough Gastrointestinal Gastrointestinal: Reports abdominal pain, Reports heartburn, Reports loose stools and Reports nausea Genitourinary Genitourinary: Denies dysuria Musculoskeletal Musculoskeletal: Denies arthralgias, Denies back pain, Denies arthralgias, Denies myalgias and Denies neck pain Integumentary/Breasts Skin/Breast: Denies lesions and Denies rash Neurologic Neurologic: Denies confusion, Denies dizziness, Denies syncope, Denies frequent falls and Denies headache(s) Psychiatric Psychiatric: Denies anxiety and Denies confusion Hematologic/Lymphatic On Anticoagulants: No Allergic/Immunologic Allergic/Immunologic: Denies GI upset with certain foods Patient History Medical History (Updated 11/21/21 @ 13:24 by James Horvath MD) Anxiety History of peptic ulcer disease Polycystic kidney disease Surgical History Status post appendectomy Status post cholecystectomy Social History household members: spouse and children Smoking Status: Never smoker alcohol intake: never Smoking Status: Never smoker alcohol intake frequency: other Substance Use Type: marijuana Exam Initial Vital Signs Initial Vital Signs: Vital Signs Temperature 98.2 F 11/21/21 09:28 Pulse Rate 109 H 11/21/21 09:28 Respiratory Rate 24 11/21/21 09:28 Blood Pressure 112/73 11/21/21 09:28 Pulse Oximetry 99 11/21/21 09:28 Const General: cooperative, in distress and anxious [facility] Head: normal to inspection, normocephalic and atraumatic Face and sinus: sinuses nontender Mouth: oral mucosae normal and mucous membranes abnormal Throat: posterior oropharynx normal Eyes Visual Manrique: normal visual manrique by confrontation Pupils: PERRL EOM: EOM intact bilaterally Neck Neck: supple and No tender Chest Other: reproducible tenderness in the left upper outer chest. Resp Auscultation: clear to auscultation bilaterally Cardio Rate: regular rate Rhythm: regular rhythm Heart Sounds: S1 normal, S2 normal, no gallops, no murmurs and no rubs GI Inspection: normal to inspection and non-distended Palpation: soft Other: Mild epigastric tenderness without guarding or rebound. Normal bowel sounds Back/Spine/Pelvis Back: normal to inspection and No CVA tenderness Skin General: no rashes or lesions noted Neuro General: patient alert, patient awake, patient oriented x3 and no focal motor deficits Extrem General: normal to inspection, no pedal edema and no calf tenderness Psych Speech and Movement: agitated Mood: anxious mood Course Course Course Narrative: Nausea and vomiting resolved after receiving Reglan and Benadryl. She was given Toradol for the left shoulder pain, this did help. Protonix was given. We talked about her anxiety. She has no access to PCM, although she has working to get a PCM. She was previously on Ativan. I recommend citalopram. I have started her on citalopram 10 mg daily. I suggested follow-up locally, even walking Clinic, in 2 weeks. She May benefit from a dosing increased to 20 mg daily, but should seek clinical interaction for making that decision.. Orders Ordered: ED Orders 11/21/21 10:05 EKG-12 Lead Stat 11/21/21 10:10 Complete Blood Count AUTO DIFF Stat Comprehensive Metabolic Panel Stat Lipase Stat Sodium Chloride (Normal Saline 0.9%) 1,000 mls @ 1,000 mls/hr IV BOLUS ONE Stop: 11/21/21 12:35 Last Admin: 11/21/21 11:37 Dose: 1,000 mls/hr Documented by: VANESSA Discontinued Medications Diphenhydramine HCl (Diphenhydramine 50 Mg/Ml Vial) 25 mg IV NOW ONE Stop: 11/21/21 10:06 Last Admin: 11/21/21 10:26 Dose: 25 mg Documented by: VANESSA Sodium Chloride (Normal Saline 0.9%) 500 mls @ 1,000 mls/hr IV BOLUS ONE Stop: 11/21/21 10:34 Last Infusion: 11/21/21 11:21 Dose: 1,000 mls/hr Documented by: Admin: 11/21/21 10:25 Dose: 1,000 mls/hr Documented by: VANESSA Ketorolac Tromethamine (Ketorolac 30 Mg/Ml Vial) 30 mg IV NOW ONE Stop: 11/21/21 10:06 Last Admin: 11/21/21 10:25 Dose: 30 mg Documented by: VANESSA Metoclopramide HCl (Metoclopramide 10 Mg/2 Ml Inj) 10 mg IV NOW ONE Stop: 11/21/21 10:06 Last Admin: 11/21/21 10:27 Dose: 10 mg Documented by: VANESSA Pantoprazole Sodium (Pantoprazole 40 Mg Vial) 40 mg IV NOW ONE Stop: 11/21/21 10:06 Last Admin: 11/21/21 10:27 Dose: 40 mg Documented by: VANESSA Vital Signs Vital signs: Vital Signs - 8 hr 11/21/21 09:28 11/21/21 10:36 11/21/21 11:00 Temperature 98.2 F Pulse Rate 109 H 89 82 Respiratory Rate 24 30 H 28 H Blood Pressure 112/73 97/60 Pulse Oximetry 99 100 100 11/21/21 11:30 11/21/21 11:39 11/21/21 12:00 Temperature Pulse Rate 84 84 87 Respiratory Rate 22 22 Blood Pressure 99/54 L 96/57 L Pulse Oximetry 100 100 100 MDM - SOB/Dyspnea Lab Data Result diagrams: 11/21/21 10:10 11/21/21 10:10 Labs: Lab Results 11/21/21 11/21/21 Range/Units 10:10 10:10 WBC 11.7 H (4.5-11.0) X10^3/uL RBC 4.45 (4.0-5.2) X10^6/uL Hgb 13.5 (12.0-16.0) g/dL Hct 40.3 (36-46) % MCV 90.6 (80-100) fL MCH 30.4 (26-34) PG MCHC 33.6 (30-36) % RDW 12.7 (11.6-14.8) % Plt Count 276 (150-400) X10^3/uL Neut % (Auto) 76.0 H (50-75) % Lymph % (Auto) 14.7 L (25-40) % Banks % (Auto) 5.3 (3-14) % Eos % (Auto) 3.7 (2-4) % Baso % (Auto) 0.3 (0-2) % Neut # (Auto) 8900 H (4477-2373) /uL Lymph # (Auto) 1700 (5915-2636) /uL Banks # (Auto) 600 (0-900) /uL Eos # (Auto) 400 (0-450) /uL Baso # (Auto) 0 (0-100) /uL Sodium 140 (137-145) mmol/L Potassium 3.9 (3.4-5.1) mmol/L Chloride 108 H (98-107) mmol/L Carbon Dioxide 22 (22-32) mmol/L BUN 11 (7-17) mg/dL Creatinine 0.63 (0.52-1.04) mg/dL Estimated GFR > 60.0 (>60) mL/min BUN/Creatinine Ratio 17.5 (6-22) Glucose 92 (70-100) mg/dL Calcium 9.8 (8.4-10.2) mg/dL Total Bilirubin 0.5 (0.2-1.3) mg/dL AST 26 (14-36) IU/L ALT 17 (<35) IU/L Alkaline Phosphatase 41 (38-126) U/L Total Protein 8.5 H (6.3-8.2) g/dL Albumin 4.9 (3.5-5.0) g/dL Globulin 3.6 (1.7-4.1) g/dL Albumin/Globulin Ratio 1.4 (1.0-2.8) Lipase 199 (23-300) U/L Point of Care Testing Test Results Negative Urine Dip Bedside Urine Glucose Negative Bedside Urine Bilirubin - Negative Bedside Urine Ketone - Negative Urine Specific [place] 1.005 Bedside Urine Occult Blood - Negative Bedside Urine pH 8.0 Bedside Urine Protein - Negative Bedside Urine Urobilinogen - Negative Bedside Urine Nitrite - Negative Bedside Urine Leukocytes - Negative Esterase Discharge Plan Departure Patient Disposition: Home Clinical Impression: Anxiety, Nausea & vomiting Instructions: DI for Anxiety -- Adult, Nausea and Vomiting-Adult Activity Restrictions/Additional Instructions: Zofran every 4 hours as needed for nausea. Citalopram 10 mg daily for anxiety. You should follow-up with the clinician about 2 weeks. If your doing well, you may benefit from increasing the dose to 20 mg daily. Establish care with a local physician as soon as possible. Return here as needed. Prescriptions: New citalopram 10 mg tablet 10 mg PO DAILY Qty: 90 1RF ondansetron 4 mg tablet,disintegrating 4 mg PO Q4H PRN (Reason: nausea and vomiting) 2 Days Qty: 20 0RF No Action ondansetron 4 mg tablet,disintegrating 4 mg PO Q8-12H PRN (Reason: nausea and vomiting) Qty: 14 0RF epinephrine 0.3 mg/0.3 mL auto-injector 0.3 mg IM PRN PRN (Reason: Allergic Reaction) 0RF Label Comments: INJECT CONTENTS OF 1 PEN NEEDED FOR ANAPHYLAXIS loratadine [Claritin] 10 mg Tablet 10 mg PO DAILY 0RF acetaminophen [Acetaminophen Extra Strength] 500 mg Tablet 1,000 mg PO Q6H PRN (Reason: Pain (Scale Score 4-6)) 0RF albuterol sulfate 90 mcg/actuation Hfa Aerosol Inhaler 2 puff INHALATION Q4HR PRN (Reason: Shortness Of Breath Or Wheezing) 0RF omeprazole 20 mg Tablet,Delayed Release (Dr/Ec) 20 mg PO BID 0RF Stand Alone Forms: Work Release Note
[2021-11-21 10:25] LABS: Add Manual Diff / Slide Review NO; Basophils Absolute Auto 0 /uL (0-100); Basophils Percent Auto 0.3 % (0-2); Eosinophils Absolute Auto 400 /uL (0-450); Eosinophils Percent Auto 3.7 % (2-4); Hematocrit 40.3 % (36-46); Hemoglobin 13.5 g/dL (12.0-16.0); Lymphocytes Absolute Auto 1700 /uL (1100-4500); Lymphocytes Percent Auto 14.7 % (25-40); Mean Corpuscular HGB Conc 33.6 % (30-36); Mean Corpuscular Hemoglobin 30.4 PG (26-34); Mean Corpuscular Volume 90.6 fL (80-100); Monocytes Absolute Auto 600 /uL (0-900); Monocytes Percent Auto 5.3 % (3-14); Neutrophils Absolute Auto 8900 /uL (1500-7000); Platelet Count 276 X10^3/uL (150-400); Red Blood Cell Count 4.45 X10^6/uL (4.0-5.2); Red Cell Distribution Width 12.7 % (11.6-14.8); White Blood Cell Count 11.7 X10^3/uL (4.5-11.0)
[2021-11-21] MEDS: SODIUM CHLORIDE 0.9% 500 ML 1000 ML IV (10:25)
[2021-11-21] MEDS: KETOROLAC 30 MG/ML VIAL IV (10:25)
[2021-11-21] MEDS: diphenhydrAMINE 50 MG/ML VIAL 25 MG IV (10:26)
[2021-11-21] MEDS: METOCLOPRAMIDE 10 MG/2 ML INJ IV (10:27)
[2021-11-21] MEDS: PANTOPRAZOLE 40 MG VIAL IV (10:27)
[2021-11-21 10:35] LABS: Alanine Aminotransferase 17 IU/L (<35); Albumin 4.9 g/dL (3.5-5.0); Albumin Globulin Ratio 1.4 (1.0-2.8); Alkaline Phosphatase 41 U/L (38-126); Aspartate Aminotransferase 26 IU/L (14-36); BUN Creatinine Ratio 17.5 (6-22); Bilirubin Total 0.5 mg/dL (0.2-1.3); Blood Urea Nitrogen 11 mg/dL (7-17); Calcium 9.8 mg/dL (8.4-10.2); Carbon Dioxide 22 mmol/L (22-32); Chloride 108 mmol/L (98-107); Estimated Glomerular Filt Rate > 60.0 mL/min (>60); Globulin 3.6 g/dL (1.7-4.1); Glucose 92 mg/dL (70-100); HEMOLYSIS 27 (0-50); Lipase 199 U/L (23-300); Potassium 3.9 mmol/L (3.4-5.1); Sodium 140 mmol/L (137-145); Total Protein 8.5 g/dL (6.3-8.2)
[2021-11-21] MEDS: SODIUM CHLORIDE 0.9% 1,000 ML 1000 ML IV (11:37)
== END 2021-11-21 13:37 | disposition home or self-care (01) ==
PROVIDERS: Emergency Provider Emergency Medicine
DX: R07.9 Chest pain, unspecified (principal); F41.9 Anxiety disorder, unspecified; R11.2 Nausea with vomiting, unspecified
CPT/HCPCS: 36415; 80053; 81003; 81025; 83690; 85025; 93005; 93010; 96361; 96374; 96375; 99284; C9113; J1200; J1885; J2765

== ENCOUNTER 2022-11-13 13:14 | Emergency (ER) | payer OTHER, SELFPAY ==
[2021-04-08 02:06] VITALS: BMI 26.2
[2022-11-13] VITALS (22 sets, daily range): BP systolic 91–116; BP diastolic 57–71; PULSE 62–81; RESP 20; TEMP 36.4; O2SAT 94–100; BMI 25.0
[2022-11-13 14:21] LABS: Add Manual Diff / Slide Review NO; Basophils Absolute Auto 100 /uL (0-100); Basophils Percent Auto 1.1 % (0-2); Eosinophils Absolute Auto 300 /uL (0-450); Eosinophils Percent Auto 3.7 % (2-4); Hematocrit 42.3 % (36-46); Hemoglobin 14.1 g/dL (12.0-16.0); Lymphocytes Absolute Auto 1900 /uL (1100-4500); Lymphocytes Percent Auto 25.2 % (25-40); Mean Corpuscular HGB Conc 33.3 % (30-36); Mean Corpuscular Hemoglobin 29.7 PG (26-34); Mean Corpuscular Volume 89.1 fL (80-100); Monocytes Absolute Auto 400 /uL (0-900); Monocytes Percent Auto 4.9 % (3-14); Neutrophils Absolute Auto 4800 /uL (1500-7000); Neutrophils Percent Auto 65.1 % (50-75); Platelet Count 273 X10^3/uL (150-400); Red Blood Cell Count 4.75 X10^6/uL (4.0-5.2); Red Cell Distribution Width 12.9 % (11.6-14.8); White Blood Cell Count 7.4 X10^3/uL (4.5-11.0)
[2022-11-13 14:31] LABS: Alanine Aminotransferase 18 IU/L (<35); Albumin 4.4 g/dL (3.5-5.0); Albumin Globulin Ratio 1.3 (1.0-2.8); Alkaline Phosphatase 44 U/L (38-126); Aspartate Aminotransferase 22 IU/L (14-36); BUN Creatinine Ratio 20.3 (6-22); Bilirubin Total 0.4 mg/dL (0.2-1.3); Blood Urea Nitrogen 12 mg/dL (7-17); Calcium 8.6 mg/dL (8.4-10.2); Carbon Dioxide 25 mmol/L (22-32); Chloride 105 mmol/L (98-107); Estimated Glomerular Filt Rate > 60 mL/min (>60); Globulin 3.4 g/dL (1.7-4.1); Glucose 110 mg/dL (70-100); HEMOLYSIS < 15 (0-50); Lipase 246 U/L (23-300); Potassium 3.7 mmol/L (3.4-5.1); Sodium 139 mmol/L (137-145); Total Protein 7.8 g/dL (6.3-8.2)
[2022-11-13] MEDS: ONDANSETRON 4 MG/2 ML INJ IV ×2 (14:39→15:58)
--- NOTE | 2022-11-13 15:30 | ED.ABDPAIN ---
HPI - Abdominal Pain General Chief Complaint: Abdominal Pain Stated Complaint: blood in stool, abd pain, cant keep food down Time Seen by Provider: 11/13/22 14:37 Source: patient Mode of arrival: Ambulatory History of Present Illness HPI narrative: Patient is a 37-year-old female has a history of polycystic kidney disease, appendectomy, cholecystectomy, sections, small-bowel obstructions presenting today with ongoing abdominal discomfort and rectal bleeding. She reports that she has had 2 colonoscopies in the last 4 years no abnormality found. She did have partial small-bowel obstruction 2020. She reports that over the last 24 hours she is had 6 episodes of bright red blood per rectum. There is very little stool. She has pain that moves all over abdomen she currently is very uncomfortable. She feels a little dizzy and lightheaded. She is not on any anticoagulation or antiplatelet medication. She has not out. No one else is sick at home. Related Data Home Medications Medication Instructions Recorded Confirmed acetaminophen 500 mg tablet 1,000 mg PO Q6H PRN Pain (Scale 04/08/21 11/13/22 (Acetaminophen Extra Strength) Score 4-6) albuterol sulfate 90 mcg/actuation 2 puff inhalation Q4HR PRN 04/08/21 11/13/22 aerosol inhaler Shortness Of Breath Or Wheezing epinephrine 0.3 mg/0.3 mL 0.3 mg IM PRN PRN Allergic Reaction 04/08/21 11/13/22 injection, auto-injector loratadine 10 mg tablet (Claritin) 10 mg PO DAILY 04/08/21 11/13/22 omeprazole 20 mg tablet,delayed 20 mg PO BID 05/26/21 11/13/22 release Previous Rx's Medication Instructions Recorded ondansetron 4 mg disintegrating 4 mg PO Q8-12H PRN nausea and 05/03/22 tablet vomiting #14 tabs ondansetron 4 mg disintegrating 4 mg PO Q8H PRN nausea and 11/13/22 tablet vomiting #10 tabs oxycodone-acetaminophen 5 mg-325 1 tab PO Q6H PRN pain #10 tabs 11/13/22 mg tablet (Percocet) Allergies Allergy/AdvReac Type Severity Reaction Status Date / Time aspirin Allergy Severe Anaphylaxis Verified 11/13/22 13:30 clavulanic acid Allergy Severe Anaphylaxis Verified 11/13/22 13:30 fentanyl Allergy Severe Anaphylaxis Verified 11/13/22 13:30 methylprednisolone Allergy Severe Agitated Verified 11/13/22 13:30 morphine Allergy Severe Hives Verified 11/13/22 13:30 Penicillins Allergy Severe Anaphylaxis Verified 11/13/22 13:30 hydrocodone AdvReac Severe Vomiting Verified 11/13/22 13:30 fluticasone [From Flonase] AdvReac Intermediate Agitated Verified 11/13/22 13:30 Review of Systems Review of Systems ROS Unobtainable: All systems reviewed & are unremarkable except as noted in HPI and below Patient History Medical History Allergies Anxiety Chiari I malformation Endometriosis Fatigue Food sticks on swallowing Fractures GERD (gastroesophageal reflux disease) Headache Heavy menstrual period History of peptic ulcer disease Irritable bowel syndrome Kidney disease Migraines Ovarian cyst Polycystic kidney disease Restless leg syndrome Rheumatic fever Ulcerative colitis Surgical History Anesthesia History of brain surgery History of cone biopsy of cervix History of hysterectomy for cancer Perforated ulcer Status post appendectomy Status post cholecystectomy Family History Father Prostate cancer Hyperlipidemia Mother Thyroid cancer Brother Kidney disease Sister Kidney disease Grandmother Breast cancer Social History household members: spouse and children Smoking Status: Never smoker alcohol intake: never Smoking Status: Never smoker alcohol intake frequency: other Substance Use Type: marijuana Exam Initial Vital Signs Initial Vital Signs: Vital Signs Temperature 97.5 F L 11/13/22 13:24 Pulse Rate 76 11/13/22 13:24 Respiratory Rate 20 11/13/22 13:24 Blood Pressure 107/63 11/13/22 13:24 Pulse Oximetry 100 11/13/22 13:24 Oxygen Delivery Method Room Air 11/13/22 13:24 GENERAL: Alert 37-year-old female appears very uncomfortable and in no acute distress. HEENT: Head atraumatic,EOMI, pupils reactive, face symmetric, moist mucous membranes CARDIOVASCULAR: Regular rate and rhythm without murmurs, rubs or gallops. RESPIRATORY: Breath sounds equal bilaterally, no wheezes rales or rhonchi. ABDOMEN: Soft, diffusely tender over both right and left RECTAL: No external hemorrhoids no blood no stool in vault : No CVA tenderness EXTREMITIES: Normal range of motion, no clubbing or edema. Neurovascularly intact NEUROLOGICAL: Alert and oriented x4.Normal gait and speech. SKIN: Warm, dry, no laceration, no petechiae, no rashes or lesions. Course Orders Ordered: ED Orders 11/13/22 14:15 Complete Blood Count AUTO DIFF Stat Comprehensive Metabolic Panel Stat Lactate (Lactic Acid) Stat Lipase Stat 11/13/22 15:41 Hemoglobin and Hematocrit Stat 11/13/22 15:43 CT abdomen pelvis w con Stat 11/13/22 15:47 GI Panel (Film Array) Stat Discontinued Medications Diphenhydramine HCl (Diphenhydramine 50 Mg/Ml Vial) 25 mg IV NOW ONE Stop: 11/13/22 15:54 Last Admin: 11/13/22 15:58 Dose: 25 mg Documented By: ADILENE Hydromorphone HCl (Hydromorphone 0.5 Mg Inj) 0.5 mg IV NOW ONE Stop: 11/13/22 15:45 Last Admin: 11/13/22 15:58 Dose: 0.5 mg Documented By: ADILENE Hydromorphone HCl (Hydromorphone 0.5 Mg Inj) 0.5 mg IV NOW ONE Stop: 11/13/22 18:15 Last Admin: 11/13/22 18:36 Dose: 0.5 mg Documented By: UMANG Sodium Chloride (Normal Saline 0.9%) 1,000 mls @ 1,000 mls/hr IV BOLUS ONE Stop: 11/13/22 16:42 Last Infusion: 11/13/22 17:17 Dose: 0 mls/hr Documented By: Admin: 11/13/22 15:58 Dose: 1,000 mls/hr Documented By: ADILENE Ondansetron HCl (Ondansetron 4 Mg Odt) 4 mg PO NOW PRN PRN Reason: Nausea And Vomiting Ondansetron HCl (Ondansetron 4 Mg/2 Ml Inj) 4 mg IV NOW PRN PRN Reason: Nausea And Vomiting Last Admin: 11/13/22 14:39 Dose: 4 mg Documented By: BUBBA Ondansetron HCl (Ondansetron 4 Mg/2 Ml Inj) 4 mg IV NOW ONE Stop: 11/13/22 15:49 Last Admin: 11/13/22 15:58 Dose: 4 mg Documented By: ADILENE Ondansetron HCl (Ondansetron 4 Mg Odt Prepack) 1 bottle MISC SEEINSTR ONE Stop: 11/13/22 18:15 Last Admin: 11/13/22 18:36 Dose: 1 bottle Documented By: UMANG Oxycodone/Acetaminophen (Oxycodone/Apap 5/325 Prepack) 1 bottle MISC SEEINSTR ONE Stop: 11/13/22 18:16 Last Admin: 11/13/22 18:36 Dose: 1 bottle Documented By: UMANG Vital Signs Vital signs: Vital Signs - 8 hr 11/13/22 13:24 11/13/22 14:27 11/13/22 14:28 Temperature 97.5 F L Pulse Rate 76 74 Respiratory Rate 20 Blood Pressure 107/63 104/62 Pulse Oximetry 100 99 Oxygen Delivery Method Room Air 11/13/22 14:29 11/13/22 14:29 11/13/22 14:30 Temperature Pulse Rate 74 77 Respiratory Rate Blood Pressure 105/65 Pulse Oximetry 99 98 Oxygen Delivery Method 11/13/22 14:40 11/13/22 14:40 11/13/22 15:00 Temperature Pulse Rate 72 Respiratory Rate Blood Pressure 98/62 96/63 Pulse Oximetry 99 Oxygen Delivery Method 11/13/22 15:00 11/13/22 15:20 11/13/22 15:20 Temperature Pulse Rate 72 67 Respiratory Rate Blood Pressure 101/70 Pulse Oximetry 98 98 Oxygen Delivery Method Room Air 11/13/22 15:30 11/13/22 15:40 11/13/22 15:40 Temperature Pulse Rate 64 81 Respiratory Rate Blood Pressure 110/71 Pulse Oximetry 98 98 Oxygen Delivery Method 11/13/22 16:00 11/13/22 16:00 11/13/22 16:20 Temperature Pulse Rate 76 Respiratory Rate Blood Pressure 104/64 95/60 Pulse Oximetry 100 Oxygen Delivery Method 11/13/22 16:20 11/13/22 16:35 11/13/22 16:37 Temperature Pulse Rate 65 67 Respiratory Rate Blood Pressure 101/62 Pulse Oximetry 94 96 Oxygen Delivery Method 11/13/22 16:37 11/13/22 16:40 11/13/22 16:40 Temperature Pulse Rate 68 62 Respiratory Rate Blood Pressure 95/57 L Pulse Oximetry 100 97 Oxygen Delivery Method 11/13/22 17:00 11/13/22 17:00 11/13/22 17:21 Temperature Pulse Rate 64 Respiratory Rate Blood Pressure 99/61 116/66 Pulse Oximetry 100 Oxygen Delivery Method 11/13/22 17:21 11/13/22 17:30 11/13/22 18:00 Temperature Pulse Rate 75 64 Respiratory Rate Blood Pressure 91/59 L Pulse Oximetry 96 100 Oxygen Delivery Method 11/13/22 18:00 11/13/22 18:20 11/13/22 18:20 Temperature Pulse Rate 77 66 Respiratory Rate Blood Pressure 95/64 Pulse Oximetry 100 100 Oxygen Delivery Method 11/13/22 18:30 11/13/22 18:44 11/13/22 18:44 Temperature Pulse Rate 72 73 Respiratory Rate Blood Pressure 106/66 Pulse Oximetry 100 100 Oxygen Delivery Method MDM - Abdominal Pain Lab Data 11/13/22 15:41 11/13/22 14:15 Labs: Lab Results 11/13/22 11/13/22 11/13/22 Range/Units 14:15 14:15 14:15 WBC 7.4 (4.5-11.0) X10^3/uL RBC 4.75 (4.0-5.2) X10^6/uL Hgb 14.1 (12.0-16.0) g/dL Hct 42.3 (36-46) % MCV 89.1 (80-100) fL MCH 29.7 (26-34) PG MCHC 33.3 (30-36) % RDW 12.9 (11.6-14.8) % Plt Count 273 (150-400) X10^3/uL Neut % (Auto) 65.1 (50-75) % Lymph % (Auto) 25.2 (25-40) % [place] % (Auto) 4.9 (3-14) % Eos % (Auto) 3.7 (2-4) % Baso % (Auto) 1.1 (0-2) % Neut # (Auto) 4800 (2811-8943) /uL Lymph # (Auto) 1900 (9437-4077) /uL [place] # (Auto) 400 (0-900) /uL Eos # (Auto) 300 (0-450) /uL Baso # (Auto) 100 (0-100) /uL Sodium 139 (137-145) mmol/L Potassium 3.7 (3.4-5.1) mmol/L Chloride 105 (98-107) mmol/L Carbon Dioxide 25 (22-32) mmol/L BUN 12 (7-17) mg/dL Creatinine 0.59 (0.52-1.04) mg/dL Estimated GFR > 60 (>60) mL/min BUN/Creatinine Ratio 20.3 (6-22) Glucose 110 H (70-100) mg/dL Lactate 1.0 (0.7-2.1) mmol/L Calcium 8.6 (8.4-10.2) mg/dL Total Bilirubin 0.4 (0.2-1.3) mg/dL AST 22 (14-36) IU/L ALT 18 (<35) IU/L Alkaline Phosphatase 44 (38-126) U/L Total Protein 7.8 (6.3-8.2) g/dL Albumin 4.4 (3.5-5.0) g/dL Globulin 3.4 (1.7-4.1) g/dL Albumin/Globulin Ratio 1.3 (1.0-2.8) Lipase 246 (23-300) U/L Stl C. cayetanensis PCR (Not Detect) Stool Rotavirus (PCR) (Not Detect) Stool Adenovirus (PCR) (Not Detect) Stool Astrovirus (PCR) (Not Detect) Stool Cryptosporidium PCR (Not Detect) Stl E.coli Shiga Tox PCR (Not Detect) St Sh/Enteroin Ecoli PCR (Not Detect) Stool E coli O157 PCR Stl Enterotoxigenic E PCR (Not Detect) Stool EPEC (PCR) (Not Detect) Stl E. histolytica PCR (Not Detect) Stool Giardia Lamblia PCR (Not Detect) Stool Sapovirus (PCR) (Not Detect) Stl P. shigelloides PCR (Not Detect) St Y.enterocolitica PCR (Not Detect) Stool Vibrio (PCR) (Not Detect) Stl Vibrio cholerae PCR (Not Detect) Stl Enteroaggr Ecoli PCR (Not Detect) Stl Norovirus GI/GII PCR (Not Detect) Campylobacter (PCR) (Not Detect) C. difficile Tox (PCR) (Not Detect) Salmonella (PCR) (Not Detect) 11/13/22 11/13/22 Range/Units 15:41 15:47 WBC (4.5-11.0) X10^3/uL RBC (4.0-5.2) X10^6/uL Hgb 12.8 (12.0-16.0) g/dL Hct 38.0 (36-46) % MCV (80-100) fL MCH (26-34) PG MCHC (30-36) % RDW (11.6-14.8) % Plt Count (150-400) X10^3/uL Neut % (Auto) (50-75) % Lymph % (Auto) (25-40) % [place] % (Auto) (3-14) % Eos % (Auto) (2-4) % Baso % (Auto) (0-2) % Neut # (Auto) (2359-9136) /uL Lymph # (Auto) (3414-7079) /uL [place] # (Auto) (0-900) /uL Eos # (Auto) (0-450) /uL Baso # (Auto) (0-100) /uL Sodium (137-145) mmol/L Potassium (3.4-5.1) mmol/L Chloride (98-107) mmol/L Carbon Dioxide (22-32) mmol/L BUN (7-17) mg/dL Creatinine (0.52-1.04) mg/dL Estimated GFR (>60) mL/min BUN/Creatinine Ratio (6-22) Glucose (70-100) mg/dL Lactate (0.7-2.1) mmol/L Calcium (8.4-10.2) mg/dL Total Bilirubin (0.2-1.3) mg/dL AST (14-36) IU/L ALT (<35) IU/L Alkaline Phosphatase (38-126) U/L Total Protein (6.3-8.2) g/dL Albumin (3.5-5.0) g/dL Globulin (1.7-4.1) g/dL Albumin/Globulin Ratio (1.0-2.8) Lipase (23-300) U/L Stl C. cayetanensis PCR Not detected (Not Detect) Stool Rotavirus (PCR) Not detected (Not Detect) Stool Adenovirus (PCR) Not detected (Not Detect) Stool Astrovirus (PCR) Not detected (Not Detect) Stool Cryptosporidium PCR Not detected (Not Detect) Stl E.coli Shiga Tox PCR Not detected (Not Detect) St Sh/Enteroin Ecoli PCR Not detected (Not Detect) Stool E coli O157 PCR Not Reportable Stl Enterotoxigenic E PCR Not detected (Not Detect) Stool EPEC (PCR) Not detected (Not Detect) Stl E. histolytica PCR Not detected (Not Detect) Stool Giardia Lamblia PCR Not detected (Not Detect) Stool Sapovirus (PCR) Not detected (Not Detect) Stl P. shigelloides PCR Not detected (Not Detect) St Y.enterocolitica PCR Not detected (Not Detect) Stool Vibrio (PCR) Not detected (Not Detect) Stl Vibrio cholerae PCR Not detected (Not Detect) Stl Enteroaggr Ecoli PCR Not detected (Not Detect) Stl Norovirus GI/GII PCR Not detected (Not Detect) Campylobacter (PCR) Not detected (Not Detect) C. difficile Tox (PCR) Not detected (Not Detect) Salmonella (PCR) Not detected (Not Detect) Point of care testing: Point of Care Testing Test Results Negative Urine Dip Bedside Urine Glucose Negative Bedside Urine Bilirubin - Negative Bedside Urine Ketone - Negative Urine Specific [place] 1.010 Bedside Urine Occult Blood - Negative Bedside Urine pH 8.0 Bedside Urine Protein +/- 15 Bedside Urine Urobilinogen - Negative Bedside Urine Nitrite - Negative Bedside Urine Leukocytes - Negative Esterase Imaging Data CT scan - abdomen/pelvis: Radiologist's Impression: PROCEDURE:? CT ABDOMEN PELVIS W CON ? INDICATIONS:? ab pain hx of sbo ? TECHNIQUE:? After the administration of intravenous contrast, axial sections acquired from the lung bases to the pubic symphysis.? Coronal and sagittal reformats were performed.? For radiation dose reduction, the following was used:? automated exposure control, adjustment of mA and/or kV according to patient size.? ? COMPARISON:? [facility], CT, CT ABDOMEN PELVIS W CON, 04/07/2021, 23:35. ? FINDINGS: Image quality:? Excellent.? ? Lung bases:? Lung bases are clear.? Heart size is normal. ? Solid organs:? Liver: The liver has no mass or intrahepatic biliary ductal dilatation. The portal vein and hepatic veins are patent. Biliary: Status post cholecystectomy. Pancreas: The pancreas has no mass or ductal dilatation. There is no surrounding inflammation. Spleen: Normal size. There are no masses. Adrenals: No hypertrophy or nodules. Kidneys: No obstructive calculus or hydronephrosis.? No solid mass. No cystic mass. ? Peritoneum and bowel:? The distal esophagus and stomach are normal.? The small bowel has a normal caliber and appearance. The terminal ileum is normal. The large bowel has a normal caliber and appearance.? No free fluid or air.? The appendix is not definitively seen, however there is no secondary CT finding of acute appendicitis. ? Nodes and vessels:? No retroperitoneal or mesenteric adenopathy by size criteria.? Aorta and inferior vena cava are normal in size.? ? Miscellaneous:? No abdominal wall mass or hernia. ? PELVIS:? Genitourinary:? The bladder has no wall thickening or mass. No bladder calcifications. ? Bones:? No suspicious bony lesions.? No vertebral body compression fractures.? ? IMPRESSION:? 1. No acute abdominal or pelvic abnormality. 2. No evidence of small-bowel obstruction.? ? ? Dictated by: Wallace Smiley M.D. on 11/13/2022 at 16:30 ? [facility] Narrative Medical decision making narrative: Patient 37-year-old female who has had previous colonoscopies for rectal bleeding. Had gross serosanguineous liquid which is sent down for GI panel. Blood pressure is soft in the low 100s she appears quite uncomfortable. She previously small-bowel obstruction. Blood work is otherwise overall reassuring without sign of WILLAM or anemia. Repeat H&H is also stable. CT does not show any abnormality. She actually is able to tolerate fluids pain is better after Dilaudid. She is had 2 previous colonoscopies in last couple of years. Differential diagnosis includes Crohn's disease, ulcerative colitis, polyp, gastroenteritis. I suspect nausea and vomiting that this is more of a gastroenteritis. However I did discuss with her if she continues to have significant blood loss then she should return to the emergency department for repeat levels. Blood pressure is soft 90s to 100s. After looking at history of blood pressures this is true. She is ambulatory with out symptoms, at this time I do not believe her to be hypotensive GI bleed, has blood pressures are always this Discharge Plan Departure Patient Disposition: Home Clinical Impression: Bright red rectal bleeding, Gastroenteritis Instructions: DI for Viral Gastroenteritis -- Adult, DI for Rectal Bleeding Activity Restrictions/Additional Instructions: *You have been diagnosed with rectal bleeding probable viral gastroenteritis *What to do: At this time increase fluids as tolerated. Recommend Gatorade or Gatorade product. May increase diet as tolerated. If you her dizzy or lightheaded or have persistent bleeding you may need to have your hemoglobin rechecked. Also recommend outpatient colonoscopy even though he had been previously *Continue to take medications as directed-> [facility] mg every 8 hours if needed for nausea vomiting Cameron 1 tablet every 6 hours if needed for severe pain *Follow up with your primary care provider in 2-3 days or call [phone] *Return to ER if you should have persistent bleeding worsening pain dizziness lightheadedness [or] any new, worsening or concerning symptoms CONTROLLED SUBSTANCE DISCHARGE (Narcotoic/benzodiazepine/Flexeril/Phenergan) 1. You have been prescribed narcotic medications, it does have acetaminophen/Tylenol/paracetamol in it, DO NOT TAKE MORE THAN 4,00mg in 24 hours of Tylenol. TRAMADOL DOES NOT CONTAIN TYLENOL 2. Please understand that we cannot provide further refills of narcotics, benzodiazepines or controlled substances through the ED and her pain management will need to be through your provider. 3. While on these medications you cannot drive or operate heavy machinery. 4. You cannot sign legal documents or perform any duties such as this. 5. As long as you're taking opiate pain medications he should also be taking a stool softener such as Colace, Dulcolax, MiraLAX or prune juice, to help avoid constipation. Prescriptions: New ondansetron 4 mg tablet,disintegrating 4 mg PO Q8H PRN (Reason: nausea and vomiting) Qty: 10 0RF oxycodone-acetaminophen [Percocet] 5-325 mg tablet 1 tab PO Q6H PRN (Reason: pain) Qty: 10 0RF No Action ondansetron 4 mg tablet,disintegrating 4 mg PO Q8-12H PRN (Reason: nausea and vomiting) Qty: 14 0RF epinephrine 0.3 mg/0.3 mL auto-injector 0.3 mg IM PRN PRN (Reason: Allergic Reaction) Patient Comments: INJECT CONTENTS OF 1 PEN NEEDED FOR ANAPHYLAXIS loratadine [Claritin] 10 mg Tablet 10 mg PO DAILY acetaminophen [Acetaminophen Extra Strength] 500 mg Tablet 1,000 mg PO Q6H PRN (Reason: Pain (Scale Score 4-6)) albuterol sulfate 90 mcg/actuation Hfa Aerosol Inhaler 2 puff INHALATION Q4HR PRN (Reason: Shortness Of Breath Or Wheezing) omeprazole 20 mg Tablet,Delayed Release (Dr/Ec) 20 mg PO BID Stand Alone Forms: Patient Portal/API, Work Release Note
--- NOTE | 2022-11-13 15:43 | DI.CT.S_ITS ---
PROCEDURE: CT ABDOMEN PELVIS W CON INDICATIONS: ab pain hx of sbo TECHNIQUE: After the administration of intravenous contrast, axial sections acquired from the lung bases to the pubic symphysis. Coronal and sagittal reformats were performed. For radiation dose reduction, the following was used: automated exposure control, adjustment of mA and/or kV according to patient size. COMPARISON: [facility], CT, CT ABDOMEN PELVIS W CON, 04/07/2021, 23:35. FINDINGS: Image quality: Excellent. Lung bases: Lung bases are clear. Heart size is normal. Solid organs: Liver: The liver has no mass or intrahepatic biliary ductal dilatation. The portal vein and hepatic veins are patent. Biliary: Status post cholecystectomy. Pancreas: The pancreas has no mass or ductal dilatation. There is no surrounding inflammation. Spleen: Normal size. There are no masses. Adrenals: No hypertrophy or nodules. Kidneys: No obstructive calculus or hydronephrosis. No solid mass. No cystic mass. Peritoneum and bowel: The distal esophagus and stomach are normal. The small bowel has a normal caliber and appearance. The terminal ileum is normal. The large bowel has a normal caliber and appearance. No free fluid or air. The appendix is not definitively seen, however there is no secondary CT finding of acute appendicitis. Nodes and vessels: No retroperitoneal or mesenteric adenopathy by size criteria. Aorta and inferior vena cava are normal in size. Miscellaneous: No abdominal wall mass or hernia. PELVIS: Genitourinary: The bladder has no wall thickening or mass. No bladder calcifications. Bones: No suspicious bony lesions. No vertebral body compression fractures. IMPRESSION: 1. No acute abdominal or pelvic abnormality. 2. No evidence of small-bowel obstruction. Dictated by: Wallace Smiley M.D. on 11/13/2022 at 16:30 Approved by: Wallace Smiley M.D. on 11/13/2022 at 16:35
[2022-11-13 15:57] LABS: Hemoglobin 12.8 g/dL (12.0-16.0)
[2022-11-13] MEDS: SODIUM CHLORIDE 0.9% 1,000 ML 1000 ML IV (15:58)
[2022-11-13] MEDS: HYDROMORPHONE 0.5 MG INJ IV ×2 (15:58→18:36)
[2022-11-13] MEDS: diphenhydrAMINE 50 MG/ML VIAL 25 MG IV (15:58)
[2022-11-13 17:45] LABS: Adenovirus F 40/41 Not Detected (Not Detect); Astrovirus Not Detected (Not Detect); Campylobacter Not Detected (Not Detect); Clostridium difficile toxin AB Not Detected (Not Detect); Cryptosporidium Not Detected (Not Detect); Cyclospora cayetanensis Not Detected (Not Detect); Entamoeba histolytica Not Detected (Not Detect); Enteroaggregative E.coli Not Detected (Not Detect); Enteropathogenic E.coli Not Detected (Not Detect); Enterotoxigenic E.coli It/st Not Detected (Not Detect); Giardia lamblia Not Detected (Not Detect); Norovirus GI/GII Not Detected (Not Detect); Plesiomonsa shigelloides Not Detected (Not Detect); Rotavirus A Not Detected (Not Detect); Salmonella Not Detected (Not Detect); Sapovirus Not Detected (Not Detect); Shiga-like toxin-prod E.coli Not Detected (Not Detect); Shigella/Enteroinvasive E.coli Not Detected (Not Detect); Vibrio Not Detected (Not Detect); Vibrio cholerae Not Detected (Not Detect); Yersinia enterocolitica Not Detected (Not Detect)
[2022-11-13] MEDS: OXYCODONE/APAP 5/325 PREPACK 1 BOTTLE MISC (18:36)
[2022-11-13] MEDS: ONDANSETRON 4 MG ODT PREPACK 1 BOTTLE MISC (18:36)
== END 2022-11-13 18:55 | disposition home or self-care (01) ==
PROVIDERS: Emergency Provider Emergency Medicine
DX: K62.5 Hemorrhage of anus and rectum (principal); K52.9 Noninfective gastroenteritis and colitis, unspecified
CPT/HCPCS: 36415; 74177; 80053; 81003; 81025; 83605; 83690; 85014; 85018; 85025; 87507; 96361; 96374; 96375; 96376; 99284; J1170; J1200; J2405; Q9967

== ENCOUNTER 2022-11-15 16:44 | Emergency (ER) | payer OTHER, SELFPAY ==
[2021-04-08 02:06] VITALS: BMI 26.2
[2022-11-15 17:13] VITALS: BP 115/76; PULSE 71; RESP 16; TEMP 36.9; O2SAT 100; BMI 25.0
--- NOTE | 2022-11-15 17:22 | DI.RAD.S_ITS ---
PROCEDURE: XR CHEST 1V INDICATIONS: chest pain TECHNIQUE: One view of the chest was acquired. COMPARISON: None. FINDINGS: Surgical changes and devices: Cholecystectomy clips.. Lungs and pleura: Possible right infrahilar alveolar opacity. No effusion or pneumothorax. Mediastinum: Mediastinal contours appear normal. Heart size is normal. Bones and chest wall: No suspicious bony lesions. Overlying soft tissues appear unremarkable. IMPRESSION: Possible mild right infrahilar alveolar opacity versus atelectasis. Dictated by: Silva Hernandez M.D. on 11/15/2022 at 18:24 Approved by: Silva Hernandez M.D. on 11/15/2022 at 18:24
[2022-11-15 18:00] LABS: Add Manual Diff / Slide Review NO; Basophils Absolute Auto 100 /uL (0-100); Basophils Percent Auto 0.9 % (0-2); Eosinophils Absolute Auto 200 /uL (0-450); Eosinophils Percent Auto 3.6 % (2-4); Hematocrit 42.3 % (36-46); Hemoglobin 14.3 g/dL (12.0-16.0); Lymphocytes Absolute Auto 2100 /uL (1100-4500); Lymphocytes Percent Auto 30.2 % (25-40); Mean Corpuscular HGB Conc 33.9 % (30-36); Mean Corpuscular Hemoglobin 30.2 PG (26-34); Monocytes Absolute Auto 300 /uL (0-900); Monocytes Percent Auto 4.9 % (3-14); Neutrophils Absolute Auto 4200 /uL (1500-7000); Neutrophils Percent Auto 60.4 % (50-75); Platelet Count 270 X10^3/uL (150-400); Red Blood Cell Count 4.75 X10^6/uL (4.0-5.2); Red Cell Distribution Width 12.8 % (11.6-14.8); White Blood Cell Count 6.9 X10^3/uL (4.5-11.0)
[2022-11-15 18:04] LABS: INR 1.2 (0.9-1.3); Prothrombin Time 13.3 SECONDS (10.1-12.7)
[2022-11-15 18:07] LABS: PTT Partial Thromboplastin Tim 33 SECONDS (26-36)
[2022-11-15 18:10] LABS: Alanine Aminotransferase 18 IU/L (<35); Albumin 4.7 g/dL (3.5-5.0); Albumin Globulin Ratio 1.3 (1.0-2.8); Alkaline Phosphatase 49 U/L (38-126); Aspartate Aminotransferase 24 IU/L (14-36); BUN Creatinine Ratio 16.4 (6-22); Bilirubin Total 0.5 mg/dL (0.2-1.3); Blood Urea Nitrogen 10 mg/dL (7-17); Calcium 9.3 mg/dL (8.4-10.2); Carbon Dioxide 27 mmol/L (22-32); Chloride 104 mmol/L (98-107); Creatine Kinase 57 U/L (30-135); Estimated Glomerular Filt Rate > 60 mL/min (>60); Globulin 3.5 g/dL (1.7-4.1); Glucose 87 mg/dL (70-100); HEMOLYSIS < 15 (0-50); Lipase 214 U/L (23-300); Magnesium 2.2 mg/dL (1.6-2.3); Potassium 3.8 mmol/L (3.4-5.1); Sodium 140 mmol/L (137-145); Total Protein 8.2 g/dL (6.3-8.2)
[2022-11-15 18:23] LABS: Troponin I < 0.012 ng/mL (0.01-0.034)
== END 2022-11-15 19:26 | disposition left against medical advice (07) ==
PROVIDERS: Emergency Medicine; Emergency Provider Emergency Medicine
DX: R07.9 Chest pain, unspecified (principal)
CPT/HCPCS: 36415; 71045; 80053; 82550; 83690; 83735; 84484; 85025; 85610; 85730; 93005; 99283

== ENCOUNTER 2025-01-13 15:30 | Emergency (ER) | payer OTHER, SELFPAY ==
[2021-04-08 02:06] VITALS: BMI 26.2
[2025-01-13] VITALS (11 sets, daily range): BP systolic 103–125; BP diastolic 61–78; PULSE 57–88; RESP 16–18; TEMP 36.7; O2SAT 98–100; BMI 27.1
[2025-01-13 19:47] LABS: Add Manual Diff / Slide Review NO; Basophils Absolute Auto 100 /uL (0-100); Basophils Percent Auto 0.7 % (0-2); Eosinophils Absolute Auto 500 /uL (0-450); Eosinophils Percent Auto 5.8 % (2-4); Hematocrit 42.3 % (36-46); Hemoglobin 14.3 g/dL (12.0-16.0); Lymphocytes Absolute Auto 2800 /uL (1100-4500); Lymphocytes Percent Auto 34.1 % (25-40); Mean Corpuscular HGB Conc 33.8 % (30-36); Mean Corpuscular Hemoglobin 30.7 PG (26-34); Mean Corpuscular Volume 90.8 fL (80-100); Monocytes Absolute Auto 500 /uL (0-900); Monocytes Percent Auto 6.1 % (3-14); Neutrophils Absolute Auto 4300 /uL (1500-7000); Neutrophils Percent Auto 53.3 % (50-75); Platelet Count 287 X10^3/uL (150-400); Red Blood Cell Count 4.66 X10^6/uL (4.0-5.2); Red Cell Distribution Width 13.4 % (11.6-14.8); White Blood Cell Count 8.1 X10^3/uL (4.5-11.0)
[2025-01-13 20:02] LABS: Alanine Aminotransferase 22 IU/L (<35); Albumin 4.7 g/dL (3.5-5.0); Albumin Globulin Ratio 1.4 (1.0-2.8); Alkaline Phosphatase 42 U/L (38-126); Aspartate Aminotransferase 27 IU/L (14-36); Bilirubin Total 0.4 mg/dL (0.2-1.3); Blood Urea Nitrogen 13 mg/dL (7-17); Calcium 9.9 mg/dL (8.4-10.2); Carbon Dioxide 26 mmol/L (22-32); Chloride 107 mmol/L (98-107); Estimated Glomerular Filt Rate > 60 mL/min (>60); Globulin 3.3 g/dL (1.7-4.1); Glucose 95 mg/dL (70-99); HEMOLYSIS < 15 (0-50); Lipase 313 U/L (23-300); Potassium 4.1 mmol/L (3.4-5.1); Sodium 141 mmol/L (137-145)
--- NOTE | 2025-01-13 21:30 | ED_ITS ---
HPI - Female Genitourinary General Chief complaint: Urogenital-Female Stated complaint: hx kidney disease, left side px Time Seen by Provider: 01/13/25 19:49 Source: patient Mode of arrival: Ambulatory History of Present Illness HPI Narrative: 39-year-old female history of polycystic kidney disease appendectomy cholecystectomy small-bowel obstruction presents with intermittent diarrhea with bright and dark blood in it and crampy left-sided flank and stomach pain for the past 2 3 weeks. She has had 2 colonoscopies in the last 4 years with no abnormality. She has been taking Zofran like candy for her nausea as she has not had an appetite and has had decreased oral intake. She was told that she looks pale today and still unwell and came in to be evaluated. Denies chest pain, shortness of breath, urinary complaints of dysuria, urgency, frequency, vaginal discharge, fever, chills, body aches. Other than what is stated 14 point review of system is negative. Related Data Home Medications Medication Instructions Recorded Confirmed acetaminophen 500 mg tablet 1,000 mg PO Q6H PRN Pain (Scale 04/08/21 11/13/22 (Acetaminophen Extra Strength) Score 4-6) albuterol sulfate 90 mcg/actuation 2 puff inhalation Q4HR PRN 04/08/21 11/13/22 aerosol inhaler Shortness Of Breath Or Wheezing epinephrine 0.3 mg/0.3 mL 0.3 mg IM PRN PRN Allergic Reaction 04/08/21 11/13/22 injection, auto-injector loratadine 10 mg tablet (Claritin) 10 mg PO DAILY 04/08/21 11/13/22 omeprazole 20 mg tablet,delayed 20 mg PO BID 05/26/21 11/13/22 release Previous Rx's Medication Instructions Recorded ondansetron 4 mg disintegrating 4 mg PO Q8-12H PRN nausea and 05/03/22 tablet vomiting #14 tabs ondansetron 4 mg disintegrating 4 mg PO Q8H PRN nausea and 11/13/22 tablet vomiting #10 tabs oxycodone-acetaminophen 5 mg-325 1 tab PO Q6H PRN pain #10 tabs 11/13/22 mg tablet (Percocet) Allergies Allergy/AdvReac Type Severity Reaction Status Date / Time aspirin Allergy Severe Anaphylaxis Verified 01/13/25 15:34 clavulanic acid Allergy Severe Anaphylaxis Verified 01/13/25 15:34 fentanyl Allergy Severe Anaphylaxis Verified 01/13/25 15:34 methylprednisolone Allergy Severe Agitated Verified 01/13/25 15:34 Penicillins Allergy Severe Anaphylaxis Verified 01/13/25 15:34 hydrocodone AdvReac Severe Vomiting Verified 01/13/25 15:34 morphine AdvReac Severe Hives Verified 01/13/25 15:34 fluticasone [From Flonase] AdvReac Intermediate Agitated Verified 01/13/25 15:34 Review of Systems Review of Systems ROS Unobtainable: All systems reviewed & are unremarkable except as noted in HPI and below Patient History Medical History Allergies Anxiety Chiari I malformation Endometriosis Fatigue Food sticks on swallowing Fractures GERD (gastroesophageal reflux disease) Headache Heavy menstrual period History of peptic ulcer disease Irritable bowel syndrome Kidney disease Migraines Ovarian cyst Polycystic kidney disease Restless leg syndrome Rheumatic fever Ulcerative colitis Surgical History Anesthesia History of brain surgery History of cone biopsy of cervix History of hysterectomy for cancer Perforated ulcer Status post appendectomy Status post cholecystectomy Family History Father Prostate cancer Hyperlipidemia Mother Thyroid cancer Brother Kidney disease Sister Kidney disease Grandmother Breast cancer Exam Narrative Exam Narrative: GENERAL: [39] year old patient appears stated age. Well-developed patient, in mild distress. HEAD: Atraumatic. Normocephalic. EYES: Pupils equal round and reactive. Extraocular motions intact. No scleral icterus. No injection or drainage. ENT: Nose without bleeding, purulent drainage. Throat without erythema, tonsillar hypertrophy or exudate. Airway patent. NECK: Trachea midline. Non tender CARDIOVASCULAR: Regular rate and rhythm without murmurs, gallops, or rubs. RESPIRATORY: Clear to auscultation. Breath sounds equal bilaterally. No wheezes, rales, or rhonchi. GASTROINTESTINAL: Abdomen soft, LLQ TTP, L flank TTP, nondistended. EXTREMITIES: No edema or joint tenderness. BACK: Nontender without deformity or crepitance. NEURO: AOx3. SKIN: No rash or erythema of visible areas Initial Vital Signs Initial Vital Signs: Vital Signs Temperature 98.1 F 01/13/25 15:35 Pulse Rate 57 L 01/13/25 15:35 Respiratory Rate 18 01/13/25 15:35 Blood Pressure 125/78 01/13/25 15:35 Pulse Oximetry 99 01/13/25 15:35 Oxygen Delivery Method Room Air 01/13/25 15:35 Course Orders Ordered: ED Orders 01/13/25 19:40 Complete Blood Count AUTO DIFF Stat Comprehensive Metabolic Panel Stat Lipase Stat 01/13/25 21:30 CT abdomen pelvis w con Stat Ondansetron HCl (Ondansetron 4 Mg/2 Ml Inj) 4 mg IV NOW PRN PRN Reason: Nausea And Vomiting Last Admin: 01/13/25 22:03 Dose: 4 mg Documented By: TRACEY Ondansetron HCl (Ondansetron 4 Mg Odt) 4 mg PO NOW PRN PRN Reason: Nausea And Vomiting Discontinued Medications Acetaminophen (Acetaminophen 325 Mg Tablet) 975 mg PO NOW ONE Stop: 01/13/25 21:32 Last Admin: 01/13/25 22:03 Dose: 975 mg Documented By: TRACEY Lactated Ringer's (Lactated Ringers) 1,000 mls @ 1,000 mls/hr IV BOLUS ONE Stop: 01/13/25 22:30 Last Admin: 01/13/25 22:03 Dose: 1,000 mls/hr Documented By: TRACEY Vital Signs Vital signs: Vital Signs - 8 hr 01/13/25 15:35 01/13/25 17:55 01/13/25 18:53 Temperature 98.1 F Pulse Rate 57 L 85 85 Respiratory Rate 18 16 Blood Pressure 125/78 105/61 Pulse Oximetry 99 99 99 Oxygen Delivery Method Room Air Room Air 01/13/25 18:54 01/13/25 18:54 01/13/25 19:00 Temperature Pulse Rate 84 88 Respiratory Rate Blood Pressure 113/73 Pulse Oximetry 100 100 Oxygen Delivery Method 01/13/25 19:30 01/13/25 20:00 Temperature Pulse Rate 81 86 Respiratory Rate 16 Blood Pressure Pulse Oximetry 99 100 Oxygen Delivery Method MDM - Female Genitourinary Lab Data 01/13/25 19:40 01/13/25 19:40 Labs: Lab Results 01/13/25 Range/Units 19:40 WBC 8.1 (4.5-11.0) X10^3/uL RBC 4.66 (4.0-5.2) X10^6/uL Hgb 14.3 (12.0-16.0) g/dL Hct 42.3 (36-46) % MCV 90.8 (80-100) fL MCH 30.7 (26-34) PG MCHC 33.8 (30-36) % RDW 13.4 (11.6-14.8) % Plt Count 287 (150-400) X10^3/uL Neut % (Auto) 53.3 (50-75) % Lymph % (Auto) 34.1 (25-40) % [place] % (Auto) 6.1 (3-14) % Eos % (Auto) 5.8 H (2-4) % Baso % (Auto) 0.7 (0-2) % Neut # (Auto) 4300 (5379-1202) /uL Lymph # (Auto) 2800 (0070-2556) /uL [place] # (Auto) 500 (0-900) /uL Eos # (Auto) 500 H (0-450) /uL Baso # (Auto) 100 (0-100) /uL Sodium 141 (137-145) mmol/L Potassium 4.1 (3.4-5.1) mmol/L Chloride 107 (98-107) mmol/L Carbon Dioxide 26 (22-32) mmol/L BUN 13 (7-17) mg/dL Creatinine 0.59 (0.52-1.04) mg/dL Estimated GFR > 60 (>60) mL/min BUN/Creatinine Ratio 22.0 (6-22) Glucose 95 (70-99) mg/dL Calcium 9.9 (8.4-10.2) mg/dL Total Bilirubin 0.4 (0.2-1.3) mg/dL AST 27 (14-36) IU/L ALT 22 (<35) IU/L Alkaline Phosphatase 42 (38-126) U/L Total Protein 8.0 (6.3-8.2) g/dL Albumin 4.7 (3.5-5.0) g/dL Globulin 3.3 (1.7-4.1) g/dL Albumin/Globulin Ratio 1.4 (1.0-2.8) Lipase 313 H (23-300) U/L Urine Dip Bedside Urine Glucose Negative Bedside Urine Bilirubin - Negative Bedside Urine Ketone - Negative Urine Specific [place] 1.015 Bedside Urine Occult Blood - Negative Bedside Urine pH 8.0 Bedside Urine Protein - Negative Bedside Urine Urobilinogen - Negative Bedside Urine Nitrite - Negative Bedside Urine Leukocytes - Negative Esterase Imaging Data CT scan - abdomen/pelvis: Radiologist's Impression: [address] [address] [address] Scan Report Signed Patient: Sheyla Holland MR#: [id number] : 1985 Acct:[id number] Age/Sex: 39 / F Date of Service: 01/13/25 Loc: ED Accession Number: [id number] Procedure: CT abdomen pelvis w con Ordering Provider: Cuauhtemoc Steven D.O. PROCEDURE: CT ABDOMEN PELVIS W CON INDICATIONS: L flank pain/LLQ TECHNIQUE: After the administration of intravenous contrast, axial sections acquired from the lung bases to the pubic symphysis. Coronal and sagittal reformats were performed. For radiation dose reduction, the following was used: automated exposure control, adjustment of mA and/or kV according to patient size. COMPARISON: None. FINDINGS: Image quality: Diagnostic. Peritoneum: No pneumoperitoneum or ascites. Bones: No acute osseous abnormality. Lower Chest: No acute abnormality. Liver: Normal in size and contour. Sub cm hypodense lesions, too small to characterize, likely representing simple cysts (3/52). Gallbladder: Surgically absent. Biliary tree: No intrahepatic or extrahepatic biliary ductal dilatation. Pancreas: Within normal limits. Spleen: Normal in size and contour. Kidneys: Sub 3 cm hypodense cortical hypodense lesions bilaterally, likely representing cysts; please see the 02/05/2021 renal ultrasound report. 3 punctate left inferior calyceal calculi (49-52). No hydronephrosis or obstructive urolithiasis. Pelvic phleboliths at the level of the ureterovesicular junctions. Symmetric enhancement of the kidneys. Adrenals: No adrenal nodularity. Bladder: Normal in size and wall thickness. : No acute abnormality. Stomach: Normal in size and contour. Bowel: Normal in diameter without any bowel obstruction. Appendix within normal limits (2/95). Lymph Nodes: No retroperitoneal, mesenteric, or inguinal lymphadenopathy. Vascular: No abdominal aortic aneurysm. The visualized arterial vasculature is patent. Soft Tissues: No acute abnormality. IMPRESSION: Punctate nonobstructive left calyceal nephrolithiasis without hydronephrosis. MDM Narrative Medical decision making narrative: All lab work, vital signs, nurse triage note, medication list, previous ER visits, and all imaging modalities reviewed. Patient given lactated ringer 1 L bolus Tylenol and Zofran here. Differential diagnosis include kidney stone kidney infection abscess UTI diverticulitis pancreatitis ulcer GERD. Lab work did not reveal any elevated white count or left shift. Patient was nontoxic nonseptic appearing with CMP all in the normal except for lipase of 313. Will discharge patient on dicyclomine prescription and follow up with outpatient PCP appointment February 28. Discharge Plan Departure Patient Disposition: Home Clinical Impression: Kidney stone Diarrhea Qualifiers: Diarrhea type: unspecified type Qualified Code(s): R19.7 - Diarrhea, unspecified Instructions: Diarrhea Activity Restrictions/Additional Instructions: Return with new or worsening symptoms. Clear liquid diet advance as tolerated. Follow up with PCP appointment February 28. Prescriptions: No Action ondansetron 4 mg tablet,disintegrating 4 mg PO Q8-12H PRN (Reason: nausea and vomiting) Qty: 14 0RF epinephrine 0.3 mg/0.3 mL auto-injector 0.3 mg IM PRN PRN (Reason: Allergic Reaction) Patient Comments: INJECT CONTENTS OF 1 PEN NEEDED FOR ANAPHYLAXIS loratadine [Claritin] 10 mg Tablet 10 mg PO DAILY acetaminophen [Acetaminophen Extra Strength] 500 mg Tablet 1,000 mg PO Q6H PRN (Reason: Pain (Scale Score 4-6)) albuterol sulfate 90 mcg/actuation Hfa Aerosol Inhaler 2 puff INHALATION Q4HR PRN (Reason: Shortness Of Breath Or Wheezing) omeprazole 20 mg Tablet,Delayed Release (Dr/Ec) 20 mg PO BID ondansetron 4 mg tablet,disintegrating 4 mg PO Q8H PRN (Reason: nausea and vomiting) Qty: 10 0RF oxycodone-acetaminophen [Percocet] 5-325 mg tablet 1 tab PO Q6H PRN (Reason: pain) Qty: 10 0RF Referrals: Miscellaneous,Doctor, MD [Primary Care Provider] - Stand Alone Forms: Patient Portal/API/Survey
[2025-01-13] MEDS: ONDANSETRON 4 MG/2 ML INJ IV (22:03)
[2025-01-13] MEDS: ACETAMINOPHEN 325 MG TABLET 975 MG PO (22:03)
[2025-01-13] MEDS: LACTATED RINGERS 1,000 ML 1000 ML IV (22:03)
== END 2025-01-13 23:04 | disposition home or self-care (01) ==
PROVIDERS: Emergency Medicine; Emergency Provider Family Medicine
DX: N20.0 Calculus of kidney (principal); R19.7 Diarrhea, unspecified
CPT/HCPCS: 36415; 74177; 80053; 81003; 83690; 85025; 96361; 96374; 99284; J2405; Q9967